=== PATIENT | female | born 1945 | race Caucasian/White ===

== ENCOUNTER 2019-08-28 11:39 | Outpatient (CLI) | payer MEDICARE, OTHER, SELFPAY ==
--- NOTE | 2019-08-28 11:59 | XR_ITS ---
WS: [id number] XR knee RT 1-2V 51601 REASON FOR EXAM: OSTEOARTHRITIS FINDINGS: There is spurring off the lateral condyle of the femur and the medial tibial plateau. The meniscal spaces are normal. The patella tibial space is normal. The patella femoral articulations were normal. The remaining knee was normal. XR/XR knee RT 1-2V 17619 IMPRESSION: Mild osteoarthritic changes of the knee.
--- NOTE | 2019-08-28 11:59 | XR_ITS ---
WS: [id number] XR knee LT 1-2V 61820 REASON FOR EXAM: OSTEOARTHRITIS FINDINGS: The meniscal spaces are normal. The patella tibial space is normal. Patellofemoral articulations normal. No destructive changes or fractures. XR/XR knee LT 1-2V 25313 IMPRESSION: Negative left knee.
== END 2019-08-28 11:40 | disposition home or self-care (01) ==
LOC: RAD 11:48
PROVIDERS: Family Provider Family Medicine; PCP Family Medicine; Visit Provider Family Medicine
DX: M17.0 Bilateral primary osteoarthritis of knee (principal)
CPT/HCPCS: 73560

== ENCOUNTER 2019-11-14 10:10 | Outpatient (CLI) | payer MEDICARE, OTHER, SELFPAY ==
--- NOTE | 2019-11-14 10:17 | XR_ITS ---
WS: [id number] XR wrist LT min 3V* [id number] REASON FOR EXAM: LEFT WRIST PAIN FINDINGS: Degenerated changes are seen across the greater lesser multangular. There is no fractures seen in the carpal bones ulna radius are metacarpals. XR/XR wrist LT min 3V* [id number] IMPRESSION: Advanced osteoarthritic changes of the greater lesser multangular.
--- NOTE | 2019-11-14 10:17 | XR_ITS ---
WS: [id number] XR hand LT min 3V* [id number] REASON FOR EXAM: LEFT HAND PAIN FINDINGS: Degenerate changes a greater lesser multangular. There is mild degenerate changes of the distal interphalangeal joints. XR/XR hand LT min 3V* [id number] IMPRESSION: Osteoarthritic changes of the carpal bones as well as the middle interphalangea l joints.
== END 2019-11-14 10:11 | disposition home or self-care (01) ==
LOC: RAD 10:15
PROVIDERS: PCP Family Medicine; Visit Provider Orthopaedic Surgery
DX: M19.042 Primary osteoarthritis, left hand (principal)
CPT/HCPCS: 73110; 73130

== ENCOUNTER 2020-01-08 13:41 | Outpatient (CLI) | payer MEDICARE, OTHER, SELFPAY ==
[2020-01-08 14:46] LABS: Basophils # 0.1 10^3/uL (0.0-0.1); Basophils % 1.3 %; Eosinophils # 0.2 10^3/uL (0.0-0.8); Eosinophils % 4.3 %; Hematocrit 40.6 % (37.0-47.0); Hemoglobin 13.1 g/dL (11.5-15.3); Lymphocytes # 1.4 10^3/uL (0.8-4.8); Lymphocytes % 30.5 %; Mean Corpuscular HGB Conc 32.3 g/dL (30.0-36.0); Mean Corpuscular Volume 96.2 fL (81-99); Mean Platelet Volume 9.9 fL (7.4-10.4); Monocytes # 0.4 10^3/uL (0.2-0.9); Monocytes % 8.2 %; Neutrophils # 2.6 10^3/uL (1.8-7.7); Neutrophils % 55.5 %; Nucleated Red Blood Cells % 0 %; Platelet Count 241 10^3/cmm (130-400); Red Blood Count 4.22 10^6/uL (4.1-5.3); Red Cell Distribution Width 13.2 % (12.1-15.1); White Blood Count 4.7 10^3/uL (4.0-10.0)
[2020-01-08 15:30] LABS: Blood Urea Nitrogen 10 mg/dL (8-23); Calcium 9.9 mg/dL (8.5-10.5); Carbon Dioxide 30 mmol/L (22-29); Chloride 100 mmol/L (98-107); Glucose 92 mg/dL (65-115); Osmolality Calculated 288 mOsm/kg (285-295); Sodium 141 mmol/L (136-145)
== END 2020-01-08 13:42 | disposition home or self-care (01) ==
LOC: LAB 13:52
PROVIDERS: PCP Family Medicine; Visit Provider Orthopaedic Surgery
DX: Z01.812 Encounter for preprocedural laboratory examination (principal); S83.241A Other tear of medial meniscus, current injury, right knee, initial encounter; X58.XXXA Exposure to other specified factors, initial encounter
CPT/HCPCS: 36415; 80048; 85025

== ENCOUNTER 2020-09-09 07:34 | Inpatient (IN) | payer MEDICARE, OTHER, SELFPAY ==
[2020-09-09] VITALS (21 sets, daily range): BP systolic 90–132; BP diastolic 55–90; PULSE 100–125; RESP 16–25; TEMP 36.5–37.4; O2SAT 92–96; BMI 26.2
--- NOTE | 2020-09-09 07:48 | ECG_ITS ---
[facility] Test Date: 2020-09-09 Pat Name: Wendy Toth Department: Room: Gender: Female Printing Pressman: : 1945 Requested By: Yao Cloud Order Number: [id number] Neha MD: Abilio Torres M.D. Measurements Intervals [place] Rate: 111 P: RI: QRS: 13 QRSD: 105 T: 9 QT: 328 QTc: 446 Interpretive Statements ATRIAL FIBRILLATION WITH RAPID VENTRICULAR RESPONSE ABNORMAL RHYTHM ECG Compared to ECG 10/13/2018 10:56:59 Sinus bradycardia no longer present Electronically Signed On 09-09-2020 20:53:11 BROWNFIELD REDEVELOPMENT SPECIALIST by Abilio Torres M.D. [email or web address] hospitalVhayu [email or web address]/store/Ov/[id number]
--- NOTE | 2020-09-09 07:48 | XR_ITS ---
WS: [id number] PORTABLE CHEST HISTORY: a fib rvr COMPARISON: 10/13/2018 Stable appearance of the mild interstitial thickening in the RIGHT lower lobe. Benign granuloma in th e central RIGHT lung. No pleural effusion or pneumothorax. Cardiac size: Normal. Mediastinum/Aorta: Mild atherosclerosis aorta. No osseous abnormality seen. XR/XR chest 1V portable [id number] IMPRESSION: Mild chronic appearing interstitial lung disease. Very similar to the prior shruti dy from 10/13/2018. No pneumonia.
--- NOTE | 2020-09-09 07:50 | W.ED.CHESTPA ---
HPI - Chest Pain General: Chief Complaint: Chest Pain Stated Complaint: chest pain Time Seen by Provider: 09/09/20 07:39 History of Present Illness: HPI narrative: pt is a 75 year old female with PMH MVP comes to ED complaining of rapid heart rate since 10PM last night. She did not sleep at all. Denies cp, dyspnea. Denies previous cardiac history, cva, [place], or any other medical problems. Says only medical problem is pyloric stenosis they dialate yearly and she is not currently having any problems with. Timing of current episode: constant Prior episodes: No Onset: during rest Severity: moderate Relieving factors: nothing Exacerbating factors: nothing Associated symptoms: Reports no associated symptoms and vomiting (last night); Deny abdominal pain, dyspnea, nausea or palpitations Treatment prior to arrival: none Review of Systems General: Reports: 10 or more systems reviewed and unremarkable except in HPI and below Const: Denies: fatigue Eyes: Denies: change in vision, blurry vision or eye redness ENMT: Denies: throat pain, swelling of lips/tongue, ear or mastoid pain or nasal congestion Card: Denies: chest pain, palpitations, irregular heart rhythm, edema, dyspnea on exertion or orthopnea Resp: Denies: dyspnea, productive cough or non-productive cough GI: Reports: vomiting (last night); Denies: abdominal pain or nausea : Denies: flank pain, difficulty voiding, urinary frequency or urinary urgency Musc: Denies: neck pain, back pain, extremity pain, joint pain, joint redness, limited range of motion or muscle weakness Skin/Breast: Denies: rash, pruritus, erythema, skin pain or skin tenderness Neuro: Denies: headache(s), numbness in extremities, weakness in extremities, sensory changes, difficulty walking, dizziness, confusion or Slurred speech present Psych: Denies: anxiety or depression Endo: Denies: polyuria All/Imm: Denies: urticaria, throat swelling or tongue swelling PFSH ED PFSH: Medical History (Updated 09/09/20 @ 11:25 by Yao Cloud MD) Essential hypertension Hyperlipidemia Mitral regurgitation MVP (mitral valve prolapse) Pulmonary HTN Family History Father Cancer PROSTATE Mother Cancer CHF (congestive heart failure) Social History Smoking and tobacco status: never smoked Household members: spouse Marital status: Physical Exam Const: COMMON NORMALS: no acute distress, average body habitus, patient oriented x3, no limitations, healthy appearing, alert and well nourished GENERAL APPEARANCE: cooperative, comfortable, well kempt and well developed ORIENTATION/CONSCIOUSNESS: Yes awake, Yes oriented to person, Yes oriented to place and Yes oriented to time HENMT: COMMON NORMALS: normocephalic, external ears normal and Normal external nose present HEAD & SCALP: normal to inspection and normocephalic NOSE: Normal external nose present EXTERNAL EAR: Yes external ears normal MOUTH: Normal oral and palatal mucosa present THROAT: posterior oropharynx normal Eye: COMMON NORMALS: Equal, round and reactive pupils present and EOMs intact bilaterally GENERAL EYE: appearance normal, both eyes and all related structures PUPIL: Yes Equal, round and reactive pupils present Neck/C-Spine: COMMON NORMALS: full ROM, no lymphadenopathy, no meningeal signs and no JVD GENERAL: Yes normal visual inspection Lymph: LYMPHATIC: no lymphadenopathy noted Chest: COMMONS NORMALS: normal inspection of the chest and normal palpation of entire chest wall Resp: COMMON NORMALS: normal respiratory effort, No retractions, No use of accessory muscles, clear to auscultation bilaterally and percussion normal EFFORT & INSPECTION: Yes able to speak in complete sentences AUSCULTATION: clear to auscultation bilaterally PERCUSSION: percussion normal Cardio: COMMON NORMALS: no JVD, S1 normal heart sound present, S2 normal heart sound present and Peripheral pulses 2+ throughout RATE: tachycardic RHYTHM: abnormal rhythm irregularly irregular HEART SOUNDS: S1 normal heart sound present and S2 normal heart sound present PERIPHERAL PULSES: Peripheral pulses 2+ throughout OTHER: a fib rvr rate 115-125 GI: COMMON NORMALS: Normal to inspection, nondistended, normoactive bowel sounds present, Soft to palpation, non-tender and no masses INSPECTION: Yes normal to inspection PALPATION: Yes Soft to palpation : COMMON NORMALS: Yes no CVA tenderness BLADDER/KIDNEY EXAM: Yes no CVA tenderness Back/Pelvis: COMMON NORMALS: no CVA tenderness, thoracic and lumbar spine normal to inspection, no thoracic nor lumbar tenderness and thoraco-lumbar ROM normal Extremity: COMMON NORMALS: normal to inspection, full ROM, capillary refill normal, no joint enlargement and no pedal edema GENERAL: Yes normal exam except as noted Neuro: COMMON NORMALS: patient oriented x3, CN's II-XII intact bilaterally, moves all extremities, no focal motor deficits, no sensory deficits noted and gait normal SENSORIUM/ORIENTATION: Yes alert, Yes oriented to person, Yes oriented to place and Yes oriented to time MENINGEAL SIGNS: Yes no meningeal signs Psych: COMMON NORMALS: mental status grossly normal, Normal thought process present, cooperative, normal affect and speech normal APPEARANCE: Yes well kempt ATTITUDE: Yes calm SPEECH: Yes normal speech THOUGHT PROCESS: Normal thought process present Skin: COMMON NORMALS: no rashes or lesions noted GENERAL SKIN EXAM: no rashes or lesions noted Course Vital Signs: Vital signs: Vital Signs Temperature 97.7 F 09/09/20 07:36 Pulse Rate 113 H 09/09/20 11:39 Respiratory Rate 19 H 09/09/20 09:27 Blood Pressure 121/81 09/09/20 11:39 Pulse Oximetry 94 09/09/20 11:39 MDM - Chest Pain MDM Narrative: Medical decision making narrative: PT arrives with new onset a. fib RVR with rate 120-130s and symptomatic of tachycardia. Given cardizem bolus, then drip. Some rate improvement to 100s. Discussed with Dr. Carr who accepts to CSU. DIscussed blood thinners with her and risks of bleeding in head, GI, benefits of preventing clots and CVA and alternatives of nothing. She understands and is A+Ox4 with present and wishes to take the lovenox. Lab Data: Labs: Lab Results 09/09/20 09/09/20 09/09/20 Range/Units 08:16 08:16 08:16 WBC 6.1 (4.0-10.0) 10^3/ uL RBC 3.86 L (4.1-5.3) 10^6/u L Hgb 12.1 (11.5-15.3) g/dL Hct 37.0 (37.0-47.0) % MCV 95.9 (81-99) fL MCH 31.3 (28.0-34.0) pg MCHC 32.7 (30.0-36.0) g/dL RDW 13.5 (12.1-15.1) % Plt Count 196 (130-400) 10^3/c mm MPV 10.0 (7.4-10.4) fL Neut % (Auto) 73.5 % Lymph % (Auto) 12.8 % Lake % (Auto) 11.9 % Eos % (Auto) 1.1 % Baso % (Auto) 0.5 % Neut # (Auto) 4.49 (1.8-7.7) 10^3/u L Lymph # (Auto) 0.8 (0.8-4.8) 10^3/u L Lake # (Auto) 0.7 (0.2-0.9) 10^3/u L Eos # (Auto) 0.1 (0.0-0.8) 10^3/u L Baso # (Auto) 0.0 (0.0-0.1) 10^3/u L Nucleated RBC % (a uto) 0 % Nucleated RBCs # 0.0 /100WBC D-Dimer 0.45 (0-0.59) ug/mIFE U Sodium 139 (136-145) mmol/L Potassium 3.9 (3.5-5.1) mmol/L Chloride 103 (98-107) mmol/L Carbon Dioxide 27 (22-29) mmol/L Anion Gap 12.9 (5-19) BUN 12 (8-23) mg/dL Creatinine 0.5 (0.5-0.9) mg/dL GFR Calculation Not Reportable Glucose 124 H (65-115) mg/dL Calculated Osmolal ity 289 (285-295) mOsm/k g Calcium 9.4 (8.5-10.5) mg/dL Total Bilirubin 0.9 (0.15-1.2) mg/dL AST 35 H (0-32) U/L ALT 22 (0-33) U/L Alkaline Phosphata se 67 (35-105) IU/L Troponin T Baselin e (0-10) ng/L Troponin T 120 [place] (0-10) ng/L Delta Troponin T (0-10) ABS# NT-Pro-B Natriuret Pep 5116 H (0-450) pg/mL Total Protein 6.4 L (6.6-8.7) g/dL Albumin 4.2 (3.5-5.2) g/dL Globulin 2.2 (1.3-4.6) g/dL Urine Color (Yellow) Urine Appearance (CLEAR) Urine pH (5-7) Ur Specific Gravit y (1.005-1.030) Urine Protein (Negative) Urine Glucose (UA) (Normal) Urine Ketones (Negative) Urine Blood (Negative) Urine Nitrate (Negative) Urine Bilirubin (Negative) Urine Urobilinogen (Negative) mg/dL Ur Leukocyte Bailey ase (Negative) 09/09/20 09/09/20 09/09/20 Range/Units 08:16 09:25 10:30 WBC (4.0-10.0) 10^3/ uL RBC (4.1-5.3) 10^6/u L Hgb (11.5-15.3) g/dL Hct (37.0-47.0) % MCV (81-99) fL MCH (28.0-34.0) pg MCHC (30.0-36.0) g/dL RDW (12.1-15.1) % Plt Count (130-400) 10^3/c mm MPV (7.4-10.4) fL Neut % (Auto) % Lymph % (Auto) % Lake % (Auto) % Eos % (Auto) % Baso % (Auto) % Neut # (Auto) (1.8-7.7) 10^3/u L Lymph # (Auto) (0.8-4.8) 10^3/u L Lake # (Auto) (0.2-0.9) 10^3/u L Eos # (Auto) (0.0-0.8) 10^3/u L Baso # (Auto) (0.0-0.1) 10^3/u L Nucleated RBC % (a uto) % Nucleated RBCs # /100WBC D-Dimer (0-0.59) ug/mIFE U Sodium (136-145) mmol/L Potassium (3.5-5.1) mmol/L Chloride (98-107) mmol/L Carbon Dioxide (22-29) mmol/L Anion Gap (5-19) BUN (8-23) mg/dL Creatinine (0.5-0.9) mg/dL GFR Calculation Glucose (65-115) mg/dL Calculated Osmolal ity (285-295) mOsm/k g Calcium (8.5-10.5) mg/dL Total Bilirubin (0.15-1.2) mg/dL AST (0-32) U/L ALT (0-33) U/L Alkaline Phosphata se (35-105) IU/L Troponin T Baselin e 21 H (0-10) ng/L Troponin T 120 [place] 18.91 H (0-10) ng/L Delta Troponin T -2.09 L (0-10) ABS# NT-Pro-B Natriuret Pep (0-450) pg/mL Total Protein (6.6-8.7) g/dL Albumin (3.5-5.2) g/dL Globulin (1.3-4.6) g/dL Urine Color Straw (Yellow) Urine Appearance Clear (CLEAR) Urine pH 5 (5-7) Ur Specific Gravit y 1.005 (1.005-1.030) Urine Protein Neg (Negative) Urine Glucose (UA) Norm (Normal) Urine Ketones Negative (Negative) Urine Blood Neg (Negative) Urine Nitrate Negative (Negative) Urine Bilirubin Neg (Negative) Urine Urobilinogen Norm (Negative) mg/dL Ur Leukocyte Bailey ase Negative (Negative) Discharge Plan Discharge Patient Disposition: Admitted As Inpatient Clinical Impression: Atrial fibrillation with rapid ventricular response Condition: Stable Coding Level of Care Code ED Aerospace Stress Engineer for Karog Fwd Exam Comprehensive
[2020-09-09 08:35] LABS: Basophils % 0.5 %; Eosinophils # 0.1 10^3/uL (0.0-0.8); Eosinophils % 1.1 %; Hemoglobin 12.1 g/dL (11.5-15.3); Lymphocytes # 0.8 10^3/uL (0.8-4.8); Lymphocytes % 12.8 %; Mean Corpuscular HGB Conc 32.7 g/dL (30.0-36.0); Mean Corpuscular Hemoglobin 31.3 pg (28.0-34.0); Mean Corpuscular Volume 95.9 fL (81-99); Monocytes # 0.7 10^3/uL (0.2-0.9); Monocytes % 11.9 %; Neutrophils # 4.49 10^3/uL (1.8-7.7); Neutrophils % 73.5 %; Nucleated Red Blood Cells % 0 %; Platelet Count 196 10^3/cmm (130-400); Red Blood Count 3.86 10^6/uL (4.1-5.3); Red Cell Distribution Width 13.5 % (12.1-15.1); White Blood Count 6.1 10^3/uL (4.0-10.0)
[2020-09-09 08:48] LABS: Troponin(5th) Baseline 21 ng/L (0-10)
[2020-09-09 08:49] LABS: D Dimer 0.45 ug/mIFEU (0-0.59)
[2020-09-09 08:57] LABS: Alanine Aminotransferase 22 U/L (0-33); Albumin Level 4.2 g/dL (3.5-5.2); Alkaline Phosphatase 67 IU/L (35-105); Anion Gap 12.9 (5-19); Aspartate Amino Transferase 35 U/L (0-32); Blood Urea Nitrogen 12 mg/dL (8-23); Calcium 9.4 mg/dL (8.5-10.5); Carbon Dioxide 27 mmol/L (22-29); Chloride 103 mmol/L (98-107); Creatinine Clr Calc Pharmacy 59.7172; Globulin 2.2 g/dL (1.3-4.6); Glucose 124 mg/dL (65-115); NT Pro B Type Natriuretic Pept 5116 pg/mL (0-450); Osmolality Calculated 289 mOsm/kg (285-295); Potassium 3.9 mmol/L (3.5-5.1); Sodium 139 mmol/L (136-145); Total Bilirubin 0.9 mg/dL (0.15-1.2); Total Protein 6.4 g/dL (6.6-8.7)
--- NOTE | 2020-09-09 09:28 | PC.NURSE ---
patient up to restroom with assist
[2020-09-09 09:36] LABS: Add Urine Microscopic? NO
[2020-09-09 09:47] LABS: Bilirubin Urine Neg (Negative); Blood Urine Neg (Negative); Glucose Urine UA Norm (Normal); Ketones Urine Negative (Negative); Leukocyte Esterase Urine Negative (Negative); Nitrate Urine Negative (Negative); Protein Urine Neg (Negative); Specific Gravity, Urine 1.005 (1.005-1.030); Urine Appearance Clear (CLEAR); Urine Color Straw (Yellow); Urobilinogen Urine Norm (Negative); pH Urine 5 (5-7)
--- NOTE | 2020-09-09 09:48 | ECG_ITS ---
[facility] Test Date: 2020-09-09 Pat Name: Wendy Toth Department: Room: Gender: Female News Anchor: : 1945 Requested By: Yao Cloud Order Number: [id number] Neha MD: Abilio Torres M.D. Measurements Intervals [place] Rate: 91 P: [place]: QRS: 5 QRSD: 108 T: 9 QT: 356 QTc: 439 Interpretive Statements ATRIAL FIBRILLATION ABNORMAL RHYTHM ECG Compared to ECG 09/09/2020 07:44:02 No significant changes Electronically Signed On 09-09-2020 21:00:06 FOIL CUTTER by Abilio Torres M.D. [email or web address] Gapgrant [email or web address] Concepts/store/[id number]
[2020-09-09 10:58] LABS: Troponin 5 2HR 18.91 ng/L (0-10)
[2020-09-09 11:00] LABS: Troponin 5 2HR Delta -2.09 ABS# (0-10)
[2020-09-09] MEDS: enoxaparin 80 mg/0.8 mL Syringe 70 MG SUBCUT ×2 (11:56→22:03)
[2020-09-09 12:09] LABS: Magnesium 1.9 mg/dL (1.7-2.3); Thyroid Stimulating Hormone 0.04 uIU/mL (0.27-4.20)
--- NOTE | 2020-09-09 13:17 | P.HP_ITS ---
Providers/Chief Complaint Admitting Physician: Eron Carr MD Primary Care Provider: Javy Fields MD Chief Complaint: chest pain History of Present Illness Wendy Toth is a 75 year old female who presents with history of palpitations for the last 2 days. She reports no chest discomfort or significant shortness of breath. More apparent when she lays on her side. The feeling of palpitations has been constant. Nothing seems to improve it . She denies any history of Covid, exposure to anybody with Covid. She denies any recent other illnesses. She denies a prior history of atrial fibrillation. Review of Systems General: Reports: 10 or more systems reviewed and unremarkable except in HPI and below Const: Denies: fever(s) or chills Eyes: Denies: change in vision ENMT: Denies: throat pain Card: Reports: palpitations; Denies: chest pain Resp: Denies: dyspnea GI: Denies: abdominal pain : Denies: flank pain Musc: Denies: neck pain Skin/Breast: Denies: rash Neuro: Denies: headache(s) Psych: Denies: anxiety Endo: Denies: polyuria Edi/Lymph: Denies: easy bruising All/Imm: Denies: urticaria Medications/Allergies Home Medications Medication Instructions Recorded Confirmed Last Taken Type atenolol 100 mg tablet 50 mg PO DAILY@18 tab 01/01/20 09/09/20 09/08/20 History cetirizine 10 mg tablet 10 mg PO DAILY@08 01/01/20 09/09/20 Unknown History lansoprazole 15 mg capsule,delayed 15 mg PO DAILY@18 01/01/20 09/09/20 09/08/20 History release red yeast rice 600 mg tablet See Rx Instructions .ROUTE .COMPLEX 01/01/20 09/09/20 Unknown History acetaminophen [Tylenol Extra 1,000 mg PO BEDTIME 09/09/20 09/09/20 Unknown History Strength] multivitamin 1 tab PO DAILY@08 09/09/20 09/09/20 Unknown History Allergies Allergy/AdvReac Type Severity Reaction Status Date / Time amoxicillin Allergy Unknown Unknown Verified 09/09/20 07:42 azithromycin [From Zithromax] Allergy Unknown Unknown Verified 09/09/20 07:42 erythromycin base Allergy Unknown Unknown Verified 09/09/20 07:42 Penicillins Allergy Unknown Unknown Verified 09/09/20 07:42 PFSH Acute PFSH: Medical History (Updated 09/09/20 @ 13:20 by Eron Carr MD) Essential hypertension GERD (gastroesophageal reflux disease) Hiatal hernia Hyperlipidemia Mitral regurgitation MVP (mitral valve prolapse) Pulmonary HTN Surgical History (Updated 09/09/20 @ 13:20 by Eron Carr MD) Esophageal dilatation History of D&C S/P cataract extraction S/P hernia repair Family History Father Cancer PROSTATE Mother Cancer CHF (congestive heart failure) Social History (Updated 09/09/20 @ 13:20 by Eron Carr MD) Smoking and tobacco status: never smoked Alcohol intake: never Household members: spouse Marital status: Vitals/I&O/Wt Last Vital Signs Temp 97.7 F 09/09/20 07:36 Pulse 100 09/09/20 12:12 Resp 20 H 09/09/20 12:12 BP 129/87 09/09/20 12:12 Pulse Ox 96 09/09/20 12:12 09/08/20 09/09/20 09/09/20 22:59 06:59 14:59 Intake Total 7.417 / 7.417 Balance 7.417 / 7.417 Weight last 48 hrs Weight 72.575 kg Physical Exam Narrative: EXAM NARRATIVE: General exam is a white female, conversant in no apparent distress with a heart rate of approximately 115 HEENT: Pupils equally round. Oropharynx clear. Neck is supple no lymphadenopathy or thyromegaly Cardiovascular irregular, irregular with accelerated rate. No murmur. Lungs clear without wheezing or crackles Abdomen is soft with positive bowel sounds. No obvious organomegaly was deferred Extremities no cyanosis clubbing or edema, cap refill brisk. Skin no obvious rash Neuro no obvious focal deficits. Data : 09/09/20 08:16 09/09/20 08:16 Other data: Echocardiogram April 2019 demonstrated severe pulmonary hypertension with pulmonary artery pressure of 74 and moderate to severe mitral regurgitation. Holter monitor December 2019 demonstrated no evidence of arrhythmia EKG today demonstrates atrial fibrillation with rapid ventricular rate, nonspecific ST-T wave changes, normal axis LFTs normal with exception of AST slightly elevated at 35 Troponin baseline 21 with repeat of 18.9 BNP elevated at 50 116 TSH that I ordered is low at 0.04 Urinalysis negative Magnesium normal at 1.9 A&P Assessment and plan (1) Atrial fibrillation with rapid ventricular response: Placed on Cardizem drip in the emergency department Plan is to continue Cardizem drip Patient is not sure if she took her atenolol last night. Initiate metoprolol 50 mg twice daily Taper off Cardizem as tolerated Full dose anticoagulation with Lovenox TSH checked and abnormal. Check free T4 and free T3 Troponin elevation is noted but consistent with atrial fibrillation with rapid ventricular rate. No evidence of myocardial infarction Status: Acute (2) Mitral regurgitation: Check echocardiogram. Is been 2 years since her last echocardiogram. Status: Acute (3) Pulmonary HTN: Noted on previous echocardiogram. Repeat Status: Acute (4) Essential hypertension: Currently on a Cardizem drip Metoprolol will be initiated Status: Acute (5) MVP (mitral valve prolapse): Status: Acute (6) Hyperlipidemia: Status: Acute Additional A&P Information History of GERD. Start Protonix. Full code Lovenox will suffice for DVT prophylaxis Attestations Medical Necessity Statement*: Will need greater than 2 midnight stay for treatment and evaluation of atrial fibrillation with rapid ventricular rate Time Spent in Patient Care: Greater than 35 minutes Coding Level of Care Code Acute High School Mathematics Teacher for Chg Fwd Diagnoses Atrial fibrillation with rapid ventricular response I48.91 Mitral regurgitation I34.0 Pulmonary HTN I27.20 Essential hypertension I10 MVP (mitral valve prolapse) I34.1 Hyperlipidemia E78.5
--- NOTE | 2020-09-09 13:30 | USCV_ITS ---
Wendy Toth Age: 75 Gender: F : 1945 Exam Date: 09/09/2020 16:11 Ordering Phys: Eron Carr MD Technologist: Bettina Venegas [place] [facility] [place]: AFIB BP: 109 / 70 HR: 97 Rhythm: Atrial fibrillation Technical Quality: Adequate MEASUREMENTS (Male / Female) Normal Values 2D ECHO LV Diastolic Diameter PLAX 4.5 cm 4.2 - 5.9 / 3.9 - 5.3 cm LV Systolic Diameter PLAX 3.1 cm LV Chamber Size 2.9 cm IVS Diastolic Thickness 1.2 cm 0.6 - 1.0 / 0.6 - 0.9 cm IVS Systolic Thickness 2.0 cm LVPW Diastolic Thickness 1.4 cm 0.6 - 1.0 / 0.6 - 0.9 cm LVPW Systolic Thickness 1.7 cm RV Chamber Size 3.3 cm LVOT Diameter 2.0 cm LV Ejection Fraction 2D Teich 59.0 % LV Ejection Fraction MOD 2C 65.8 % LV Ejection Fraction 2C AL 69.4 % LA Diameter 4.0 cm LA Width 3.5 cm LA Height 5.9 cm RA Width 3.4 cm RA Height 5.2 cm Aorta at Sinotubular Diameter 3.5 cm M-MODE LV Diastolic Diameter MM 5.2 cm 4.2 - 5.9 / 3.9 - 5.3 cm LV Systolic Diameter MM 3.8 cm LV Ejection Fraction MM Teich 53.4 % IVS Diastolic Thickness MM 1.3 cm 0.6 - 1.0 / 0.6 - 0.9 cm IVS Systolic Thickness MM 1.4 cm LVPW Diastolic Thickness MM 1.3 cm 0.6 - 1.0 / 0.6 - 0.9 cm LVPW Systolic Thickness MM 1.8 cm Aortic Annulus Diameter 3.2 cm LA Ao Ratio MM 1.2 MV E Point Septal Separation 0.4 cm DOPPLER AV Peak Velocity 163.0 cm/s LVOT Peak Velocity 92.0 cm/s AV Area Cont Eq vti 1.8 cm squared AV Area Cont Eq pk 1.9 cm squared MV Area PHT 4.1 cm squared MV E' Velocity 73.0 cm/s Mitral E to MV E' Ratio 9.8 Mitral E to LV E' Lateral Ratio 12.0 Mitral E to LV E' Septal Ratio 8.3 TR Peak Velocity 265.8 cm/s TR Peak Gradient 28.3 mmHg TR Mean Velocity 200.1 cm/s TR Mean Gradient 17.8 mmHg TR Velocity Time Integral 67.4 cm TV Peak E Velocity 61.0 cm/s Right Atrial Pressure 3.0 mmHg Pulmonary Artery Systolic Pressu 31.3 mmHg PV Peak Velocity 60.0 cm/s RV Acceleration Time 0.1 s RV Ejection Time 0.3 s RV AcT/ET 0.4 FINDINGS Left Ventricle Normal left ventricular size, systolic function and wall thickness, with no regional wall motion abnormalities. Left ventricular ejection fraction is estimated at 65 %. Rhythm precludes evaluation of diastolic function. Right Ventricle Normal right ventricular size and systolic function, RVSP 30 mmHg. Right Atrium Normal right atrial size. Right atrial pressure estimated at 3 mmHg. Left Atrium Moderately increased left atrial size. Mitral Valve Moderate mitral annular calcification. Markedly thickened myxomatous appearing mitral valve with moderate bileaflet prolapse. Mild to moderate mitral valve regurgitation. Aortic Valve Mildly thickened trileaflet aortic valve. No aortic valve stenosis. No significant aortic valve regurgitation. Tricuspid Valve Structurally normal tricuspid valve. Kbdl-li-igmtzpnr tricuspid valve regurgitation. Pulmonic Valve Pulmonic valve not well visualized. No significant pulmonary valve regurgitation. Pericardium No pericardial effusion. Aorta Normal-sized aortic root. Normal-sized inferior vena cava with normal respiratory variation. CONCLUSIONS 1. Normal left ventricular size, systolic function and wall thickness, with no regional wall motion abnormalities. Left ventricular ejection fraction is estimated at 65 %. 2. Normal right ventricular size and systolic function, RVSP 30 mmHg. 3. Markedly thickened myxomatous appearing mitral valve leaflets with moderate bileaflet prolapse. Mild to moderate mitral valve regurgitation. 4. Diah-yu-eoewrhoc tricuspid valve regurgitation. 5. When compared to previous study dated 04/15/2019, severity of mitral valve regurgitation may have improved. Yasmin Ny MD (Electronically Signed) Final Date: 10 September 2020 09:15 S
--- NOTE | 2020-09-09 13:48 | ECG_ITS ---
[facility] Test Date: 2020-09-09 Pat Name: Wendy Toth Department: Room: 112 Gender: Female Transformer Molder: : 1945 Requested By: Yao Cloud Order Number: [id number] Neha MD: Abilio Torres M.D. Measurements Intervals [place] Rate: 104 P: NV: QRS: 19 QRSD: 97 T: 30 QT: 319 QTc: 421 Interpretive Statements ATRIAL FIBRILLATION WITH RAPID VENTRICULAR RESPONSE ABNORMAL RHYTHM ECG Compared to ECG 09/09/2020 10:12:51 No significant changes Electronically Signed On 09-09-2020 21:02:41 PHLEBOTOMY SUPERVISOR by Abilio Torres M.D. [email or web address] medical [id number]
[2020-09-09 15:03] LABS: Estmated Average Glucose 88; Hemoglobin A1C 4.7 % (4.0-6.0)
[2020-09-09 15:21] LABS: Troponin 5 6HR 17.06 ng/L (0-10)
[2020-09-09 15:24] LABS: Troponin 5 6HR Delta -3.94 ng/L (0-12)
[2020-09-09 15:56] LABS: Free T4 Free Thyroxine 2.05 ng/dL (0.82-1.77); T3 Free 12.4 PG/ML (2.0-4.4)
--- NOTE | 2020-09-09 18:37 | PC.NURSE ---
Pt lying in bed resting with eyes open. Resp even and non-labored no distress noted. Pt had no c/o pain or discomfort at the present time. No needs voiced. Call light in reach. Will continue to monitor.
[2020-09-09] MEDS: metoprolol tartrate 50 mg Tablet PO (20:21)
[2020-09-09] MEDS: acetaminophen 325 mg Tablet 650 MG PO (20:25)
[2020-09-10] VITALS (30 sets, daily range): BP systolic 81–123; BP diastolic 53–89; PULSE 67–120; RESP 14–38; TEMP 36.1–36.8; O2SAT 94–96
[2020-09-10 05:13] LABS: Basophils % 0.8 %; Eosinophils # 0.2 10^3/uL (0.0-0.8); Eosinophils % 3.4 %; Hematocrit 36.1 % (37.0-47.0); Hemoglobin 11.7 g/dL (11.5-15.3); Lymphocytes # 1.2 10^3/uL (0.8-4.8); Mean Corpuscular HGB Conc 32.4 g/dL (30.0-36.0); Mean Corpuscular Hemoglobin 31.4 pg (28.0-34.0); Mean Corpuscular Volume 96.8 fL (81-99); Mean Platelet Volume 10.1 fL (7.4-10.4); Monocytes # 0.7 10^3/uL (0.2-0.9); Monocytes % 12.5 %; Neutrophils # 3.22 10^3/uL (1.8-7.7); Neutrophils % 61.1 %; Nucleated Red Blood Cells % 0 %; Platelet Count 180 10^3/cmm (130-400); Red Blood Count 3.73 10^6/uL (4.1-5.3); Red Cell Distribution Width 13.4 % (12.1-15.1); White Blood Count 5.3 10^3/uL (4.0-10.0)
[2020-09-10 05:30] LABS: Anion Gap 11.3 (5-19); Blood Urea Nitrogen 12 mg/dL (8-23); Calcium 8.9 mg/dL (8.5-10.5); Carbon Dioxide 25 mmol/L (22-29); Chloride 105 mmol/L (98-107); Creatinine Clr Calc Pharmacy 59.7172; Glucose 97 mg/dL (65-115); Magnesium 1.8 mg/dL (1.7-2.3); Osmolality Calculated 286 mOsm/kg (285-295); Potassium 3.3 mmol/L (3.5-5.1); Sodium 138 mmol/L (136-145)
--- NOTE | 2020-09-10 07:40 | US_ITS ---
WS: [id number] THYROID ULTRASOUND (TI-RADS CRITERIA) History: Hyperthyroidism.. Technique: Ultrasound examination of the thyroid and adjacent soft tissues is performed. FINDINGS: Right lobe: 4.5 cm x 1.7 cm x 1.8 cm. Volume: 7.3 cm3. Mildly heterogeneous slightly enlarged gland. Ill-defined nodule in the inferior lobe will be describ ed below. Left lobe: 4.1 cm x 1.5 cm x 1.5 cm. Volume: 4.7 cm3. Mildly heterogeneous gland. 5 mm nodule in the inferior pole of the LEFT thyroid. Isthmus: 0.2 cm. NODULE: 1, RIGHT Size: 1.3 x 1.4 x 1.7 cm Location: Inferior RIGHT Composition: Solid/almost completely solid (2) Echogenicity: Hypoechoic (2) Shape: Not taller than wide (0) Margins: Ill-defined (0) Echogenic foci: 0 ACR TI-RADS total points: 4 ACR TI-RADS risk category: TR4 US/US thyroid 59559 Impression: TR4 Recommendation:Ultrasound follow-up recommended in one, 2, 3 and 5 years. If th is nodule increases in size ultrasound biopsy may be necessary.
[2020-09-10] MEDS: potassium chloride ER 20 mEq Tablet 40 MEQ PO (08:34)
[2020-09-10] MEDS: pantoprazole DR 40 mg Tablet PO (08:35)
[2020-09-10] MEDS: metoprolol tartrate 50 mg Tablet PO ×2 (08:36→20:14)
[2020-09-10] MEDS: multivitamin therapeutic Tablet 1 TAB PO (08:36)
[2020-09-10] MEDS: dilTIAZem 30 mg Tablet PO (08:36)
--- NOTE | 2020-09-10 09:02 | PC.CHAP ---
Pastoral Care Encounter/Spiritual Assessment Type of Contact [] Declined supervisor pipe joints visit [] Patient/Family/Request visit [] Outpatient visit [] Follow-up visit [] Physician referral [] Code/Alert [x] Routine visit [] Staff referral [] Actively dying [] Patient sleeping [] Family support [] [] Out of room [] Palliative care [] [] Receiving care in room [] Pre-surgical visit [] Trauma [] Long length of stay [] ICU visit [] Other: Relational/Emotional Strength [] Patient feels connected with others/family/visitors/staff [] Distress [] Loneliness/isolation [] Abandonment Spirituality of Patient [x] Person of Deisi [] Attends Cheondoism of their Deisi [] Believes in Prayer [] Reads Bible or Jain materials [] There are Spiritual issues to be addressed Scale Expert Interventions [x] Prayer [x] Active listening [x] Non-anxious presence [x] Spiritual/emotional support [] Crisis/trauma care [] Spiritual counseling [] Bereavement support [] Provided bereavement packet [] Provided Bible/devotional materials [] Provided toy/stuffed animal, coloring book to patient or family member [] Provided Communion [] Anointing/[place] [] Salvation [x] Completed spiritual assessment [] Other: Impact on Illness or Injury [] Angry [] Fearful [] Anxious [] Often cries [] Exhaustion [] Unable to work [] Unable to attend restoration [] Unable to walk/stand [] Unable to read [] Unable to drive [] Unable to eat/drink [] Unable to sleep [] Unable to be with family [] Patient intubated [] Other: Summary still having pain... patient gives the impression of being fearful... Time spent with patient 10 min
--- NOTE | 2020-09-10 09:23 | P.PN_ITS ---
Documented by User: Le Le, LIBIA STDNT 09/10/20 09:58 Subjective Subjective: Interval history: Wendy reports that she still feels her heart quivering. Thyroid labs show low TSH and high free T3/T4. We ordered thyroid ultrasound, transitioned Cardizem from IV to PO, and consulted Dr. Stone for cardiology. She denies dizziness. Vitals/I&O/Wt Last Vital Signs Temp 97.0 F L 09/10/20 07:46 Pulse 109 H 09/10/20 07:46 Resp 14 09/10/20 07:46 BP 101/65 09/10/20 07:46 Pulse Ox 96 09/10/20 07:46 09/09/20 09/10/20 09/10/20 22:59 06:59 14:59 Intake Total 312.133 / 319.550 16.833 / 336.383 360 / 360 Balance 312.133 / 319.550 16.833 / 336.383 360 / 360 Weight last 48 hrs Weight 72.575 kg Physical Exam Narrative: EXAM NARRATIVE: General exam is a white female, conversant in no apparent distress with a heart rate of approximately 109. HEENT: Pupils equally round. Oropharynx clear. Neck is supple no lymphadenopathy or thyromegaly Cardiovascular irregular, irregular with accelerated rate. No murmur. Lungs clear without wheezing or crackles Abdomen is soft with positive bowel sounds. No obvious organomegaly was deferred Extremities no cyanosis clubbing or edema, cap refill brisk. Skin no obvious rash Neuro no obvious focal deficits. Data : 09/10/20 04:36 09/10/20 04:36 A&P Assessment and plan (1) Atrial fibrillation with rapid ventricular response: Placed on Cardizem drip in the emergency department Discontinued Cardizem drip today, transitioned to Cardizem PO Continue metoprolol 50 mg twice daily Full dose anticoagulation with Lovenox TSH, free T3, free T4 checked and abnormal. Ordered thyroid ultrasound. Troponin elevation is noted but consistent with atrial fibrillation with rapid ventricular rate. No evidence of myocardial infarction Status: Acute (2) Mitral regurgitation: Checked echocardiogram. Has been 2 years since her last echocardiogram. Echocardiogram shows markedly thickened myxomatous appearing mitral valve leaflets with moderate bileaflet prolapse, mild to moderate mitral valve regurgitation, and mild to moderate tricuspid valve regurgitation. Status: Acute (3) Pulmonary HTN: Noted on previous echocardiogram. Repeat Status: Acute (4) Essential hypertension: Discontinued Cardizem drip, transitioned to Cardizem PO Continue metoprolol Status: Acute (5) MVP (mitral valve prolapse): Status: Acute (6) Hyperlipidemia: Status: Acute Additional A&P Information History of GERD. Started Protonix. Full code Lovenox will suffice for DVT prophylaxis Coding Level of Care Code Acute Launch Commander [employer] for Chg Fwd Diagnoses Atrial fibrillation with rapid ventricular response I48.91 Mitral regurgitation I34.0 Pulmonary HTN I27.20 Essential hypertension I10 MVP (mitral valve prolapse) I34.1 Hyperlipidemia E78.5 Documented by User: Eron Carr MD 09/10/20 14:31 Subjective Subjective: Interval history: Agree with above. Patient interviewed as well. Still with some palpitations. Physical Exam Narrative: EXAM NARRATIVE: Exam as above. Cardiovascular irregular, irregular, lungs clear, abdomen soft with positive bowel sounds, extremities no cyanosis clubbing or edema, neck without thyromegaly. General exam no distress Data : 09/10/20 04:36 09/10/20 04:36 A&P Additional A&P Information Above. No overall changes. Thyroid ultrasound shows one nodule over 1 cm. She will need outpatient endocrine follow-up. Secondary to atrial fibrillation with rapid ventricular rate, markedly abnormal thyroid studies have initiated beta-blas for control of atrial fibrillation and will also initiate with the methimazole. Attestations Medical Necessity Statement*: Needs continued hospital stay for adjustment of antiarrhythmics for atrial fibrillation with rapid ventricular rate. Coding Level of Care Code Acute Launch Commander [employer] for g Fwd Diagnoses Atrial fibrillation with rapid ventricular response I48.91 Mitral regurgitation I34.0 Pulmonary HTN I27.20 Essential hypertension I10 MVP (mitral valve prolapse) I34.1 Hyperlipidemia E78.5
--- NOTE | 2020-09-10 09:36 | P.CONIM_ITS ---
Providers/Reason For Consult Consulting Physican/Specialty*: Francesco Stone MD/Cardiology Reason for Consult*: New onset afib with RVR Requesting Physcian: Eron Carr MD Attending Physician: Eron Carr MD Primary Care Provider: Javy Fields MD History of Present Illness History of Present Illness Wendy Toth is a 75 year old female with PMH of mitral regurgitation and mitral valve prolapse presented to hospital with 2 days of palpitations. These symptoms get worse when she lays on side. No chest pain or shortness of breath. She was started on cardizem gtt and PO cardizem was started today. Patient also put on metoprolol 50mg BID. Her heart rate is still intermittently uncontrolled. She has been started on Lovenox. TSH was low and T3 and T 4 were elevated. No prior history of hyperthyroidism but she does have significant family history of thyroid problems. Her NT Pro BNP is elevated ECHO shows normal LV systolic function with mild to moderate mitral regurgitation and enlarged left atrium. Holter monitor done last year did not show atrial fibrillation. Review of Systems General: Reports: 10 or more systems reviewed and unremarkable except in HPI and below Const: Denies: fever(s) or chills Eyes: Denies: change in vision ENMT: Denies: throat pain Card: Reports: palpitations; Denies: chest pain Resp: Denies: dyspnea GI: Denies: abdominal pain : Denies: flank pain Musc: Denies: neck pain Skin/Breast: Denies: rash Neuro: Denies: headache(s) Psych: Denies: anxiety Endo: Denies: polyuria Edi/Lymph: Denies: easy bruising All/Imm: Denies: urticaria Meds/Allergies Home Medications and Allergies Home Medications Medication Instructions Recorded Confirmed Last Taken Type atenolol 100 mg tablet 50 mg PO DAILY@18 tab 01/01/20 09/09/20 09/08/20 History cetirizine 10 mg tablet 10 mg PO DAILY@08 01/01/20 09/09/20 Unknown History lansoprazole 15 mg capsule,delayed 15 mg PO DAILY@18 01/01/20 09/09/20 09/08/20 History release red yeast rice 600 mg tablet See Rx Instructions .ROUTE .COMPLEX 01/01/20 09/09/20 Unknown History acetaminophen [Tylenol Extra 1,000 mg PO BEDTIME 09/09/20 09/09/20 Unknown History Strength] multivitamin 1 tab PO DAILY@08 09/09/20 09/09/20 Unknown History Allergies Allergy/AdvReac Type Severity Reaction Status Date / Time amoxicillin Allergy Unknown Unknown Verified 09/09/20 07:42 azithromycin [From Zithromax] Allergy Unknown Unknown Verified 09/09/20 07:42 erythromycin base Allergy Unknown Unknown Verified 09/09/20 07:42 Penicillins Allergy Unknown Unknown Verified 09/09/20 07:42 Current Medications Current Medications Generic Name Dose Route Start Last Admin Trade Name Freq PRN Reason Stop Dose Admin Acetaminophen 650 mg 09/09/20 14:00 09/09/20 20:25 Acetaminophen 325 Mg Tablet PO 650 mg Q6H PRN Administration Mild/Mod Pain Or Temp >/= 101 Diltiazem HCl 30 mg 09/10/20 08:00 09/10/20 08:36 Diltiazem 30 Mg Tablet PO 30 mg Q6H NAIF Administration Enoxaparin Sodium 70 mg 09/09/20 23:00 09/09/20 22:03 Enoxaparin 80 Mg/0.8 Ml Syringe SUBCUT 70 mg Q12H NAIF Administration Diltiazem HCl 125 mg/ Sodium 125 mls @ 0 mls/hr 09/09/20 10:30 09/10/20 00:21 Chloride IV 5 mg/hr .Q0M NAIF 5 mls/hr Titration Protocol Per Protocol Metoprolol Tartrate 50 mg 09/09/20 21:00 09/10/20 08:36 Metoprolol Tartrate 50 Mg Tablet PO 50 mg BID@0900,2100 NAIF Administration Multivitamins Therapeutic 1 tab 09/10/20 08:00 09/10/20 08:36 Multivitamin Therapeutic Tablet PO 1 tab DAILY@08 NAIF Administration Pantoprazole Sodium 40 mg 09/10/20 09:00 09/10/20 08:[address] 40 Mg Tablet PO 40 mg DAILY NAIF Administration PFSH Acute PFSH: Medical History Essential hypertension GERD (gastroesophageal reflux disease) Hiatal hernia Hyperlipidemia Mitral regurgitation MVP (mitral valve prolapse) Pulmonary HTN Surgical History Esophageal dilatation History of D&C S/P cataract extraction S/P hernia repair Family History Father Cancer PROSTATE Mother Cancer CHF (congestive heart failure) Social History Smoking and tobacco status: never smoked Alcohol intake: never Household members: spouse Marital status: Vitals/I&O/Wt Last Vital Signs Temp 97.0 F L 09/10/20 07:46 Pulse 109 H 09/10/20 07:46 Resp 14 09/10/20 07:46 BP 101/65 09/10/20 07:46 Pulse Ox 96 09/10/20 07:46 09/09/20 09/10/20 09/10/20 22:59 06:59 14:59 Intake Total 312.133 / 319.550 16.833 / 336.383 360 / 360 Balance 312.133 / 319.550 16.833 / 336.383 360 / 360 Weight last 48 hrs Weight 160 lb Physical Exam Narrative: EXAM NARRATIVE: GENERAL: Patient is alert, awake and oriented x3. [] NECK: No jugular vein distension. [] HEENT: No cyanosis. No icterus. No pallor. [] HEART: Irregularly irregular rhythm, Tachycardic, No murmur, rub or gallop. [] LUNGS: Clear to auscultate bilaterally. [] ABDOMEN: Soft, nontender and nondistended. Positive bowel sounds. No guarding, rebound or tenderness. [] CENTRAL NERVOUS SYSTEM: Grossly nonfocal. [] EXTREMITIES: Lower extremities with 1+ edema bilaterally. Pulses palpable in the lower extremities, both dorsalis pedis and posterior tibial. [] A&P Assessment and plan (1) Atrial fibrillation with rapid ventricular response: Status: Acute (2) Essential hypertension: Status: Acute (3) Mitral regurgitation: Status: Acute (4) Hyperlipidemia: Status: Acute (5) Pulmonary HTN: Status: Acute Patient has new onset atrial fibrillation with RVR. Her TSH is low and free T4/T 3 elevated consistent with hyperthyroidism. Her left atrium is enlarged with mild to moderate mitral regurgitation. LV systolic function is normal Given CHADS VASC score of 4, she will need anticoagulation for stroke prevention. Switch Lovenox to Eliquis 5mg BID Heart rate is still uncontrolled. Will recommend continuing Cardizem at low rate and uptitrate PO cardizem as blood pressure tolerates She has some volume overload. Will give IV lasix 20mg today Hyperthyroidism treatment per medicine team. Thank you for involving us with care of this patient. We will continue to follow. Please call with questions. Coding Level of Care Code Acute Sales Representative [employer]isters for Timbo Fwd Diagnoses Atrial fibrillation with rapid ventricular response I48.91 Essential hypertension I10 Mitral regurgitation I34.0 Hyperlipidemia E78.5 Pulmonary HTN I27.20
[2020-09-10] MEDS: FUROsemide 10 mg/mL SDV 2mL 20 MG IVP (09:43)
[2020-09-10] MEDS: enoxaparin 80 mg/0.8 mL Syringe 70 MG SUBCUT (12:09)
[2020-09-10] MEDS: dilTIAZem 60 mg Tablet PO ×2 (13:55→19:23)
[2020-09-10] MEDS: methIMAzole 5 MG Tablet PO ×2 (14:07→20:14)
[2020-09-10] MEDS: acetaminophen 325 mg Tablet 650 MG PO (17:23)
[2020-09-10] MEDS: apixaban 5 mg Tablet PO (20:14)
[2020-09-11] VITALS (7 sets, daily range): BP systolic 96–137; BP diastolic 55–69; PULSE 63–85; RESP 18–25; TEMP 36.3–37.4; O2SAT 92–96
--- NOTE | 2020-09-11 01:31 | PC.NURSE ---
Unable to round on patient due to assisting with patietn in room 103.
[2020-09-11] MEDS: dilTIAZem 60 mg Tablet PO (01:50)
--- NOTE | 2020-09-11 03:49 | PC.NURSE ---
Dr. Carrasco notified of patient asking for Benadryl for itching all over.
[2020-09-11] MEDS: diphenhydrAMINE 25 mg Capsule PO (04:31)
[2020-09-11] MEDS: acetaminophen 325 mg Tablet 650 MG PO (04:32)
[2020-09-11 04:53] LABS: Basophils # 0.1 10^3/uL (0.0-0.1); Basophils % 1.4 %; Eosinophils # 0.3 10^3/uL (0.0-0.8); Hematocrit 35.8 % (37.0-47.0); Hemoglobin 11.7 g/dL (11.5-15.3); Lymphocytes % 25.1 %; Mean Corpuscular HGB Conc 32.7 g/dL (30.0-36.0); Monocytes # 0.6 10^3/uL (0.2-0.9); Monocytes % 14.3 %; Neutrophils # 2.19 10^3/uL (1.8-7.7); Nucleated Red Blood Cells % 0 %; Platelet Count 203 10^3/cmm (130-400); Red Blood Count 3.77 10^6/uL (4.1-5.3); Red Cell Distribution Width 13.2 % (12.1-15.1); White Blood Count 4.1 10^3/uL (4.0-10.0)
[2020-09-11 05:21] LABS: Blood Urea Nitrogen 16 mg/dL (8-23); Carbon Dioxide 24 mmol/L (22-29); Chloride 106 mmol/L (98-107); Creatinine Clr Calc Pharmacy 59.7172; Glucose 102 mg/dL (65-115); Magnesium 1.9 mg/dL (1.7-2.3); Osmolality Calculated 287 mOsm/kg (285-295); Sodium 138 mmol/L (136-145)
[2020-09-11] MEDS: methIMAzole 5 MG Tablet PO (08:41)
[2020-09-11] MEDS: multivitamin therapeutic Tablet 1 TAB PO (08:41)
[2020-09-11] MEDS: dilTIAZem ER (24HR) 120 mg Capsule PO (08:42)
[2020-09-11] MEDS: pantoprazole DR 40 mg Tablet PO (08:42)
[2020-09-11] MEDS: apixaban 5 mg Tablet PO (08:42)
[2020-09-11] MEDS: metoprolol tartrate 50 mg Tablet PO (08:43)
--- NOTE | 2020-09-11 09:51 | PM.DCS ---
Discharge Providers Date of Admission: 09/09/20 11:22 Date of Discharge: September 11, 2020 Attending Provider at Admission: Eron Carr MD Attending Provider at Discharge: Eron Carr MD Primary Care Provider: Javy Fields MD Diagnoses at Discharge Discharge Diagnosis (1) Atrial fibrillation with rapid ventricular response: Status: Acute (2) Essential hypertension: Status: Acute (3) Mitral regurgitation: Status: Acute (4) Hyperlipidemia: Status: Acute (5) Pulmonary HTN: Status: Acute Reason for Visit Reason for Visit: chest pain Hospital Course Hospital Course Wendy is a 75-year-old white female who presented to hospital with atrial fibrillation with rapid ventricular rate. She was placed on a Cardizem drip. Beta-blas was started, and eventually she was converted to oral Cardizem. Echocardiogram was performed which demonstrated preserved ejection fraction, mild to moderate mitral regurgitation, mild to moderate tricuspid regurgitation and right ventricle some systolic pressure of 30. Thyroid status was evaluated and TSH found to be low, with elevated free T4 and free T3. Treatment was already underway with beta-blas. Methimazole was added. She will need follow-up with cardiology, her primary care provider, and endocrinology on follow-up. A thyroid ultrasound was performed, and a thyroid cyst greater than 1 cm was noted. Endocrinology will evaluate this further. By end of patient's hospital stay she had spontaneously converted to sinus rhythm the afternoon/night of 09/10. Physical Exam Narrative: EXAM NARRATIVE: General exam no apparent distress Cardiovascular regular rate and rhythm without murmur Lungs clear Abdomen is soft, positive bowel sounds Extremities no cyanosis clubbing or edema Discharge Data Data Completed and Pending: Completed Studies During Hospitalization Category Date Time Status XR chest 1V dallin ble 78194 Stat Exams 09/09/20 07:48 Completed CV echo complete* [id number] Routine Ultrasound 09/09/20 13:30 Completed US thyroid 03198 Routine Ultrasound 09/10/20 07:40 Completed Labs from last 24 hours 09/11/20 09/11/20 04:29 04:29 WBC 4.1 RBC 3.77 L Hgb 11.7 Hct 35.8 L MCV 95.0 MCH 31.0 MCHC 32.7 RDW 13.2 Plt Count 203 MPV 10.0 Neut % (Auto) 53.0 Lymph % (Auto) 25.1 [place] % (Auto) 14.3 Eos % (Auto) 6.0 Baso % (Auto) 1.4 Neut # (Auto) 2.19 Lymph # (Auto) 1.0 [place] # (Auto) 0.6 Eos # (Auto) 0.3 Baso # (Auto) 0.1 Nucleated RBC % (a uto) 0 Nucleated RBCs # 0.0 Sodium 138 Potassium 4.0 Chloride 106 Carbon Dioxide 24 Anion Gap 12.0 BUN 16 Creatinine 0.5 GFR Calculation Not Reportable Glucose 102 Calculated Osmolal ity 287 Calcium 9.0 Magnesium 1.9 Vitals: Last Vital Signs Temp 99.1 F 09/11/20 07:22 Pulse 71 09/11/20 07:22 Resp 22 H 09/11/20 07:22 BP 124/58 09/11/20 07:22 Pulse Ox 92 09/11/20 07:22 Discharge Plan Discharge Patient Disposition: Home Condition: Stable Prescriptions: New methimazole 5 mg Tablet 5 mg PO TID Qty: 90 RF: 0 Eliquis 5 mg Tablet 5 mg PO BID@0900,2100 Qty: 60 RF: 0 metoprolol tartrate 50 mg Tablet 50 mg PO BID@0900,2100 Qty: 60 RF: 0 diltiazem HCl 120 mg Capsule,Extended Release 24hr 120 mg PO DAILY Qty: 30 RF: 0 Continued cetirizine [Zyrtec] 10 mg tablet 10 mg PO DAILY@08 RF: 0 red yeast rice 600 mg tablet See Rx Instructions .ROUTE .COMPLEX RF: 0 lansoprazole [Prevacid] 15 mg capsule,delayed release(DR/EC) 15 mg PO DAILY@18 RF: 0 multivitamin Tablet 1 tab PO DAILY@08 RF: 0 Tylenol Extra Strength 500 mg Tablet 1,000 mg PO BEDTIME RF: 0 Discontinued atenolol 100 mg tablet 50 mg PO DAILY@18 RF: 0 Discharge Orders: Discharge Order (Routine); Ordered 09/11/20 Ordered By: Eron Carr Referrals: Francesco Stone M.D [Physician] - 2 weeks (Follow-up of atrial fibrillation) Bora Rogel MD [Physician] - 7-10 days (Hyperthyroidism) Javy Fields MD [Primary Care Provider] - 4-7 days Discharge Diet: Cardiac Discharge Activity: Increase activity as tolerated Activity Restrictions/Additional Instructions: Take all medicine as prescribed Keep follow-up If any significant bleeding or black or tarry stools please notify your primary care provider Discharge Attestations Time Spent in Discharge Care*: greater than 30 min Quality Metrics Clinical Quality Measures During this hospital stay, did patient experience: None Coding Level of Care Code Acute Mentally Retarded Teacher for Chg Fwd Diagnoses Atrial fibrillation with rapid ventricular response I48.91 Essential hypertension I10 Mitral regurgitation I34.0 Hyperlipidemia E78.5 Pulmonary HTN I27.20
--- NOTE | 2020-09-11 10:31 | PM.PN ---
Subjective Subjective: Interval history: Patient is doing well. She denies complaints of chest pain, shortness of breath or palpitations. She is in normal sinus rhythm now. Vitals/I&O/Wt Last Vital Signs Temp 99.1 F 09/11/20 07:22 Pulse 71 09/11/20 07:22 Resp 22 H 09/11/20 07:22 BP 124/58 09/11/20 07:22 Pulse Ox 92 09/11/20 07:22 09/10/20 09/11/20 09/11/20 22:59 06:59 14:59 Intake Total 240 / 776.167 300 / 1076.167 Balance 240 / 776.167 300 / 1076.167 Physical Exam Narrative: EXAM NARRATIVE: GENERAL: Patient is alert, awake and oriented x3. [] NECK: No jugular vein distension. [] HEENT: No cyanosis. No icterus. No pallor. [] HEART: Regular rhythm, Tachycardic, No murmur, rub or gallop. [] LUNGS: Clear to auscultate bilaterally. [] ABDOMEN: Soft, nontender and nondistended. Positive bowel sounds. No guarding, rebound or tenderness. [] CENTRAL NERVOUS SYSTEM: Grossly nonfocal. [] EXTREMITIES: Lower extremities with 1+ edema bilaterally. Pulses palpable in the lower extremities, both dorsalis pedis and posterior tibial. [] Data : 09/11/20 04:29 09/11/20 04:29 A&P Assessment and plan (1) Atrial fibrillation with rapid ventricular response: (2) Essential hypertension: Status: Acute (3) Mitral regurgitation: Status: Acute (4) Hyperlipidemia: Status: Acute (5) Pulmonary HTN: Status: Acute Patient has new onset atrial fibrillation with RVR. Her TSH is low and free T4/T 3 elevated consistent with hyperthyroidism. Her left atrium is enlarged with mild to moderate mitral regurgitation. LV systolic function is normal Given CHADS VASC score of 4, she will need anticoagulation for stroke prevention. Continue Eliquis 5 mg BID Patient has converted to NSR.Continue cardizem/metoprolol 50mg BID Hyperthyroidism treatment per medicine team. Outpatient follow up with cardiology. Patient is stable to be discharged from cardiology standpoint. Thank you for involving us with care of this patient. Please call with questions. Attestations Medical Necessity Statement*: Care expected to cross 2 midnights Coding Level of Care Code Acute Operations Officer [employer] for Chg Fwd Diagnoses Atrial fibrillation with rapid ventricular response I48.91 Essential hypertension I10 Mitral regurgitation I34.0 Hyperlipidemia E78.5 Pulmonary HTN I27.20
--- NOTE | 2020-09-11 13:31 | PC.NURSE ---
Discharge instructions given per the physician's orders. Patient verbalized understanding of teaching and medication changes. IV has been discontinued. Patient is dressing self, to be taken home by in private vehicle. Discharge medications delivered to bedside. No further needs identified at this time. Nurse to continue to monitor.
== END 2020-09-11 13:45 | disposition home or self-care (01) | DRG 310 ==
LOC: ER 11:25 → CSU 12:19
PROVIDERS: Admitting Provider Internal Medicine; Emergency Provider Family Medicine; PCP Family Medicine; Visit Provider Internal Medicine
DX: I48.91 Unspecified atrial fibrillation (principal); I34.0 Nonrheumatic mitral (valve) insufficiency; I27.20 Pulmonary hypertension, unspecified; E78.5 Hyperlipidemia, unspecified; I34.1 Nonrheumatic mitral (valve) prolapse; I10 Essential (primary) hypertension; K21.9 Gastro-esophageal reflux disease without esophagitis
CPT/HCPCS: 12345; 36415; 71045; 76536; 80048; 80053; 81003; 83036; 83735; 83880; 84439; 84443; 84481; 84484; 85025; 85378; 93005; 93306; 96365; 96366; 96372; 96375; 96376; 99285; J1650; J1940; J3490

== ENCOUNTER 2020-09-22 10:19 | Outpatient (CLI) | payer MEDICARE, OTHER, SELFPAY ==
[2020-09-22 11:05] LABS: Alanine Aminotransferase 12 U/L (0-33); Albumin Level 4.2 g/dL (3.5-5.2); Alkaline Phosphatase 72 IU/L (35-105); Anion Gap 12.3 (5-19); Aspartate Amino Transferase 17 U/L (0-32); Blood Urea Nitrogen 11 mg/dL (8-23); Calcium 9.4 mg/dL (8.5-10.5); Carbon Dioxide 30 mmol/L (22-29); Chloride 100 mmol/L (98-107); Globulin 2.6 g/dL (1.3-4.6); Glucose 86 mg/dL (65-115); Osmolality Calculated 285 mOsm/kg (285-295); Potassium 4.3 mmol/L (3.5-5.1); Sodium 138 mmol/L (136-145); Total Bilirubin 0.3 mg/dL (0.15-1.2); Total Protein 6.8 g/dL (6.6-8.7)
== END 2020-09-22 10:20 | disposition home or self-care (01) ==
LOC: LAB 10:23
PROVIDERS: PCP Family Medicine; Visit Provider Internal Medicine
DX: E05.90 Thyrotoxicosis, unspecified without thyrotoxic crisis or storm (principal); I48.91 Unspecified atrial fibrillation
CPT/HCPCS: 36415; 80053; 99204

== ENCOUNTER 2020-09-28 10:24 | Outpatient (CLI) | payer MEDICARE, OTHER, SELFPAY ==
[2020-09-29 11:52] LABS: T3 Total 99 ng/dL (76-181)
[2020-10-03 19:53] LABS: TSH Receptor Binding Antibody <1.00 IU/L (< OR = 2.00)
== END 2020-09-28 10:25 | disposition home or self-care (01) ==
PROVIDERS: PCP Family Medicine; Visit Provider Internal Medicine
DX: E05.90 Thyrotoxicosis, unspecified without thyrotoxic crisis or storm (principal)
CPT/HCPCS: 36415; 83516; 84439; 84480

== ENCOUNTER 2020-10-26 08:58 | Outpatient (CLI) | payer MEDICARE, OTHER, SELFPAY ==
--- NOTE | 2020-10-26 09:04 | NM_ITS ---
WS: [id number] NUCLEAR MEDICINE 24 HOUR I-123 THYROID UPTAKE INDICATION: Hyperthyroidism TECHNIQUE: I-123 24 HOUR THYROID UPTAKE WITH PLANAR IMAGING. 129 [facility] ZECHARIAH 123 COMPARISON: Ultrasound thyroid September 10, 2020 FINDINGS: Normal symmetric thyroid uptake in both thyroid lobes 24 hour images. 24 hour thyroid uptak e 33.5% at the upper end of the range but within normal limits. NORMAL 24H THRYOID UPTAKE 8-35% NM/NM thyroid uptake [facility] [id number] IMPRESSION: 24-hour thyroid uptake 33.5% at the upper end of the range but with in normal limits
== END 2020-10-26 08:59 | disposition home or self-care (01) ==
LOC: NM 08:58
PROVIDERS: PCP Family Medicine; Visit Provider Internal Medicine
DX: E05.90 Thyrotoxicosis, unspecified without thyrotoxic crisis or storm (principal)
CPT/HCPCS: 78014; A9516

== ENCOUNTER 2021-08-01 08:23 | Outpatient (CLI) | payer MEDICARE, OTHER, SELFPAY ==
[2021-08-01 08:52] VITALS: BP 111/68; PULSE 60; RESP 17; TEMP 36.7; O2SAT 96; BMI 26.6
[2021-08-01 09:17] VITALS: BP 119/67; PULSE 53; RESP 17; O2SAT 95
[2021-08-01 10:01] VITALS: BP 108/62; PULSE 56; RESP 18; TEMP 36.5; O2SAT 95
== END 2021-08-01 08:24 | disposition home or self-care (01) ==
PROVIDERS: PCP Family Medicine; Visit Provider Family Medicine
DX: U07.1 COVID-19 (principal)
CPT/HCPCS: 96365

== ENCOUNTER → 2022-01-17 15:03 | Outpatient (BNVA) | payer MEDICARE, OTHER, SELFPAY | PROVIDERS: PCP Family Medicine; Visit Provider Family Medicine | DX: E78.5 Hyperlipidemia, unspecified (principal); I48.91 Unspecified atrial fibrillation; E05.90 Thyrotoxicosis, unspecified without thyrotoxic crisis or storm | CPT/HCPCS: 80053; 84439; 84443; 84481; 85025 ==

== ENCOUNTER 2022-05-10 06:00 | Outpatient (RCR) | payer MEDICARE, OTHER, SELFPAY | END 2022-06-08 23:59 | disposition home or self-care (01) | LOC: SOT 06:00 | PROVIDERS: PCP Family Medicine; Visit Provider Orthopaedic Surgery | DX: Z47.89 Encounter for other orthopedic aftercare (principal) | CPT/HCPCS: 97018; 97110; 97140; 97166 ==

== ENCOUNTER 2022-06-09 06:00 | Outpatient (RCR) | payer MEDICARE, OTHER, SELFPAY | END 2022-07-09 23:59 | disposition home or self-care (01) | LOC: SOT 06:00 | PROVIDERS: PCP Family Medicine; Visit Provider Orthopaedic Surgery | DX: Z47.89 Encounter for other orthopedic aftercare (principal) | CPT/HCPCS: 97018; 97110; 97140 ==

== ENCOUNTER → 2022-07-14 10:41 | Outpatient (BNVA) | payer MEDICARE, OTHER, SELFPAY | PROVIDERS: PCP Family Medicine; Referring Provider Family Medicine; Visit Provider Student in an Organized Health Care Education/Training Program | DX: M17.11 Unilateral primary osteoarthritis, right knee (principal); M94.262 Chondromalacia, left knee | CPT/HCPCS: 73560; 73565; 99204 ==

== ENCOUNTER → 2022-07-21 14:06 | Outpatient (BNVA) | payer MEDICARE, OTHER, SELFPAY | PROVIDERS: PCP Family Medicine; Visit Provider Family Medicine | DX: E05.90 Thyrotoxicosis, unspecified without thyrotoxic crisis or storm (principal); I48.0 Paroxysmal atrial fibrillation; I10 Essential (primary) hypertension; M17.11 Unilateral primary osteoarthritis, right knee | CPT/HCPCS: 80053; 84443; 85025 ==

== ENCOUNTER 2022-07-28 12:51 | Outpatient (CLI) | payer MEDICARE, OTHER, SELFPAY ==
--- NOTE | 2022-07-28 13:00 | CT_ITS ---
WS: [id number] CT RIGHT knee, noncontrast HISTORY: knee pain TECHNIQUE: Protocol for DAO total knee replacement has been obtained. This includes axial imaging th rough the RIGHT hip, RIGHT knee and RIGHT ankle. DLP: 934.14 mGy.cm COMPARISON: None available. Pelvis: Symmetric hips. No destructive bone process. RIGHT knee: minimal joint space narrowing. No significant joint effusion. RIGHT ankle: Negative. CT/CT knee RT wo con* [id number] IMPRESSION: CT imaging provided for [facility] robotic total knee replacement.
== END 2022-07-28 12:52 | disposition home or self-care (01) ==
LOC: RAD 12:55
PROVIDERS: PCP Family Medicine; Visit Provider Student in an Organized Health Care Education/Training Program
DX: M25.561 Pain in right knee (principal)
CPT/HCPCS: 73700

== ENCOUNTER 2022-08-03 05:58 | Day surgery (SDC) | payer MEDICARE, OTHER, SELFPAY ==
[2022-07-27 13:02] VITALS: BMI 27.4
--- NOTE | 2022-07-27 13:36 | ANES.PREANE2 ---
Pre-Anesthetic Assessment Height/Weight: Height 1.65 m Weight 74.843 kg Operation Date: 08/03/22 07:40 Proposed Procedures p Pierce Robot Total Knee Arthroplasty(Right) - Adi Enriquez DO Familial anesthetic complications: none Was Beta Humphrey taken within 24 hours: Yes Was Clonidine taken within 24 hours: N/A Social No alcohol and No tobacco Exam alert, oriented x 3, clear to auscultation bilaterally and regular rate & rhythm Airway Submandibular: within normal limits Cervical ROM: within normal limits Mallampati: Class II Dentition: caps CV/HEM Hypertension GI Gastroesophageal Reflux Disease Metabolic Hyperlipidemia Musc/skel Osteoarthritis/DJD Anesthetic Plan ASA status: 2 Anesthesia: Choice Other: Discussed GA, SAB and adductor blk Medications/Allergies Home Medications Medication Instructions Recorded Confirmed Last Taken Type cetirizine 10 mg tablet (Zyrtec) 10 mg PO DAILY@01/01/20 07/27/22 07/27/22 History lansoprazole 15 mg capsule,delayed 15 mg PO DAILY@01/01/20 07/27/22 07/26/22 History release (Prevacid) acetaminophen 500 mg tablet 1,000 mg PO BEDTIME 09/09/20 07/27/22 07/27/22 History (Tylenol Extra Strength) multivitamin 1 tab PO DAILY@08 09/09/20 07/27/22 07/27/22 History Lactobacillus acidophilus 10 mg PO DAILY 09/22/20 07/27/22 07/27/22 History (Acidophilus capsule) ascorbate calcium (vitamin C) 500 1 g PO BID 09/22/20 07/27/22 07/27/22 History mg tablet black elderberry 1 mg PO DAILY 09/22/20 07/27/22 07/26/22 History calcium 600 mg-D3 800 unit-mag11 1 tab PO DAILY 09/22/20 07/27/22 07/20/22 History 50 ph-bfss-umckes-paulo-s.borat tablet cholecalciferol (vitamin D3) 125 125 mcg PO DAILY 09/22/20 07/27/22 07/27/22 History mcg (5,000 unit) capsule glucosamine HCl 1,500 mg tablet 1,500 mg PO BID 09/22/20 07/27/22 07/27/22 History melatonin 1 mg tablet 1 mg PO .bedtime 03/07/27/22 07/26/22 History atorvastatin 10 mg tablet 10 mg PO DAILY 05/16/22 07/27/22 07/27/22 History metoprolol tartrate 25 mg tablet 25 mg PO BID 07/21/22 07/27/22 07/27/22 History Allergies Allergy/AdvReac Type Severity Reaction Status Date / Time amoxicillin Allergy Unknown Unknown Verified 07/27/22 12:53 azithromycin [From Zithromax] Allergy Unknown Unknown Verified 07/27/22 12:53 erythromycin base Allergy Unknown Unknown Verified 07/27/22 12:53 [facility] Anesthesia Medical History Atrial fibrillation with rapid ventricular response Chondromalacia, left knee Essential hypertension GERD (gastroesophageal reflux disease) Hiatal hernia Hyperlipidemia Mitral regurgitation MVP (mitral valve prolapse) Pulmonary HTN Surgical History Esophageal dilatation History of D&C S/P cataract extraction S/P hernia repair Family History Father Cancer PROSTATE Mother Cancer CHF (congestive heart failure) Social History Smoking and tobacco status: never smoked Second hand smoke exposure: No Alcohol intake: never Household members: spouse Marital status: Data Anesthesia Cardiac Studies: Echocardiogram Ultrasound 09/09/20 Holter Monitor 01/17/20
[2022-08-03] VITALS (17 sets, daily range): BP systolic 92–140; BP diastolic 42–66; PULSE 56–84; RESP 15–20; TEMP 36.1–36.8; O2SAT 92–96
[2022-08-03] MEDS: sodium chloride 0.9% 1,000 ML 30 ML IV (06:45)
--- NOTE | 2022-08-03 06:52 | P.ANESUD_ITS ---
Pre-Anesthetic Update Pre-Anesthetic Assessment: Date of Surgery/Procedure: 08/03/22 Preop Naz gnosis: Right knee degenerative joint disease, failed conservative treatment Proposed Procedure: Operation Date: 08/03/22 07:00 Proposed Procedures p Pierce Robot Total Knee Arthroplasty(Right) - Adi Enriquez, DO Any changes to Pre-Anesthetic Assessment?: No Last Intake: Intake Last Liquid Date 08/02/22 Last Liquid Time 18:00 Last Solid Date 08/02/22 Last Solid Time 18:00 Vitals: Temperature 98.0 F 08/03/22 06:21 Temperature Source Temporal Artery S can 08/03/22 06:21 Pulse Rate 56 L 08/03/22 06:21 Pulse Rhythm 08/03/22 06:21 Pulse Strength 3+ Normal 08/03/22 06:21 Respiratory Rate 18 08/03/22 06:21 Blood Pressure 140/66 08/03/22 06:21 Blood Pressure Katerine n 90 08/03/22 06:21 Pulse Oximetry 96 08/03/22 06:21 Oxygen Delivery Me thod 08/03/22 06:21 Exam: Pre-Anes Outpt Exam: alert, oriented x 3, clear to auscultation bilaterally and regular rate & rhythm Cardiac Studies: Echocardiogram Ultrasound 09/09/20 Holter Monitor 01/17/20
[2022-08-03 06:57] LABS: Add Urine Microscopic? NO; Charge for UA Resulting for Rev
[2022-08-03 07:05] LABS: Bilirubin Urine Neg (Negative); Blood Urine Neg (Negative); Glucose Urine UA Norm (Normal); Ketones Urine Negative (Negative); Leukocyte Esterase Urine Negative (Negative); Nitrate Urine Negative (Negative); Protein Urine Neg (Negative); Urine Appearance Clear (CLEAR); Urine Color Straw (Yellow); Urobilinogen Urine Neg (Negative); pH Urine 7 (5-7)
--- NOTE | 2022-08-03 07:10 | W.PM.OPSUD ---
Surgery/Procedure H&P Update DATE OF PROCEDURE: August 03, 2022 DATE H&P PERFORMED: 07/14/22 CHANGES TO PREVIOUS DOCUMENTATION: None. Patient's failed conservative treatment in the outpatient setting. She is been seen evaluated by Anesthesia Department cleared by her primary care physician, patient's received a preoperative CT scan for Pierce total knee arthroplasty. A.m. labs UA is clean. At this point talked about risk benefits complication alternatives surgical nonsurgical treatment options. Understanding her wrist she agrees to proceed with surgical intervention of her right total knee arthroplasty. Patient understands agrees with current plan. All questions answered. PREOP DIAGNOSIS: Right knee degenerative joint disease, failed conservative treatment PRIMARY INDICATION FOR PROCEDURE: Right knee degenerative joint disease failed conservative treatment PLANNED PROCEDURE: Operation Date: 08/03/22 07:00 Proposed Procedures p Pierce Robot Total Knee Arthroplasty(Right) - Adi Enriquez DO
[2022-08-03] MEDS: ketorolac 30 mg/mL INJ IVP (07:26)
[2022-08-03] MEDS: acetaminophen 1,000 MG/100 ML PIGGYBACK 400 MG IV ×3 (07:27→22:40)
[2022-08-03] MEDS: clindamycin 600 MG/50 ML PREMIX 100 MG IV (07:33)
[2022-08-03] MEDS: EPINEPHrine 1 mg/mL INJ XX (08:20)
[2022-08-03] MEDS: tranexamic acid 1,000 mg/10mL SDV 1000 MG XX (08:20)
[2022-08-03] MEDS: ketorolac 30 mg/mL INJ XX (08:20)
--- NOTE | 2022-08-03 08:50 | ANES.PROC ---
Anesthesia Procedures Procedure/Date: 08/03/22 adductor, genicular, pop plexus nerve blocks Nerve Block ^: Nerve Block 1: Main Anesthesia: spinal anesthesia block Time Out Performed: Yes Consent: requested by attending/covering physician, risks and benefits reviewed and patient agrees to proceed Nerve block location: adductor canal and other (pop plexus, genicular) Anesthesia monitors applied: pulse oximetry, EKG, BP cuff and oxygen Nerve block position: supine Anesthetic Used: ropivicaine 0.5% Amount of anesthesia used (mL): 55 Ultrasound used to: recognize landmarks and visualize and ID femerol nerve Nerve Stimulator Used?: No Interscalene/Femoral BLK: 4 stimuplex 21 g needle used for position and inplane approach, visualize local anesthetic spread and no vascular puncture identified Injection: neg aspiration of heme and paresthesia +/- (negative) Patient Tolerated Procedure: well and no complications Complications: none Additional Comments: verbal communication maintained with patient throughout procedure. No resistance to injection.
--- NOTE | 2022-08-03 09:37 | XR_ITS ---
WS: [id number] Exam: XR knee RT 1-2V [id number] Date/Time of Exam: 08/03/2022 10:09 AM Reason For Exam: postop TKA Comparison 07/14/2022. Right total knee replacement noted in excellent position. Postoperative changes in the adjacent soft tissues. XR/XR knee RT 1-2V [id number] IMPRESSION: 1. Right total knee replacement in excellent position.
--- NOTE | 2022-08-03 09:46 | P.OP_ITS ---
Brief Operative Note Date of procedure: 08/03/22 Pre-op diagnosis: Right knee degenerative joint disease, failed conservative t reatment Post-op diagnosis: same Procedure Done: Right total knee arthroplasty?Pierce Surgeon: Adi Enriquez Estimated blood loss (mL): 25 Complications: None Post-op Plan: Patient taken to PACU in stable condition. Patient will be admitted to the floor. Internal medicine on board for medical management. Postoperative x- rays. Postoperative TXA, antibiotics, DVT prophylaxis and pain control. Will work with therapy. Anticipate overnight stay tonight and likely discharge tomorrow. Dressings on in place clean dry and intact. Weightbearing as tolerated right lower extremity. Follow-up with Dr. Enriquez in the office in 2 weeks Condition: stable Disposition: floor Coding Level of Care Code Acute Code for Timbo Costello
--- NOTE | 2022-08-03 09:48 | PM.PACU ---
PACU note Narrative: Patient taken to PACU in stable condition recovering well. Spinal anesthesia wearing off. She has sensation tact light touch distally to the right lower extremity. She able to wiggle toes, plantarflex and dorsiflex ankle. Distal pulses are palpable. Dressings on in place clean dry and intact. Exam: awake Disposition: admitted
--- NOTE | 2022-08-03 09:48 | PM.OP ---
Operative Report Date of procedure: August 03, 2022 Pre-op diagnosis: Preop Diagnosis Right knee degenerative joint disease, failed conservative treatment Post-op diagnosis: Same Procedure done: Right total knee arthroplasty?robotic assisted Pierce Implants: Josh triathlon Femur size 4 right CR cemented Tibia size 3 universal cemented Poly-12 mm Patella?33 symmetric cemented Surgeon: Adi Enriquez DO Estimated blood loss: 25mL 71 minutes IV fluids: See anesthesia record Urine output: See anesthesia record Complications: None Findings: See operative report narrative Condition: stable Disposition: floor Brief History: Patient seen evaluated in the outpatient setting and worked up for preoperative diagnosis of severe degenerative joint disease of the right knee.? She has failed conservative treatment.? At this point we had discussion about treatment options and through shared decision making she elects to proceed with a right total knee arthroplasty-Pierce.? She understands the risk benefits complications alternatives to surgical nonsurgical treatment options.? Risks of surgery he agrees proceed.? She has been seen by his primary care physician who is cleared her for surgery as well as anesthesia department has seen patient and cleared for surgery.? Preoperative holding area consent reviewed and signed and agreeable to surgical intervention.? All questions answered at this time. Procedure: Patient seen evaluated in the preoperative holding area.? Consent was reviewed with patient and signed.? The correct extremity was then marked.? Patient seen evaluated by the anesthesia and preoperative team once cleared for surgery was taken back to the operative suite.? Patient taken back to the operative suite.? She underwent spinal anesthesia per the anesthesia department.? transported the operative table.? All bony prominences well-padded patient was appropriately secured to the bed.? Nonsterile tourniquet applied to right thigh. This point time the right lower extremity was then prepped and draped in standard orthopedic fashion.? Patient received appropriate preoperative antibiotics.? Final timeout performed. Esmarch tourniquet was used exsanguinate the right lower extremity.? Tourniquet was insufflated to 300 mmHg. A standard anterior incision was made over midline of the knee.? Sharp scalpel excision through skin and subcutaneous tissue full-thickness skin flaps were made.? Fascia was elevated off of the extensor retinaculum was stable with medial parapatellar arthrotomy was then made.? The performed standard sequential releases with a slight medial release just to accommodate for tibial pins as patient does have a valgus deformity.? It is apparent patient had eburnated bone in all 3 of the compartments with osteophyte formation in all 3 compartments. Next the the patella was then stuffed laterally and the knee was then flexed.? Hohmann was placed anteromedial and I freed the anterior aspect of the femur with a rongeur removing all synovium and a Lucas elevator. I subsequently then placed by 2 femur pins to establish my femur arrays for the [employer] robot.? These were then placed bicortically and by femur array was then appropriately secured with appropriate visualization.? Next attention was turned towards the tibial rays.? These were then drilled sequentially bicortically in parallel fashion.? I then placed my guide as well as my tibial array on in place.? This was appropriately secured and had excellent visualization with the Pierce robot.? Next the tibial checkpoint as well as femur checkpoint were then placed.? At this point time I then subsequently established my head center as well as my medial lateral malleoli as well as my checkpoints.? Next utilizing standard [employer] technology I then mapped out the appropriate points and confirmation points around the femur as well as the tibia in standard fashion.? Once this was then done I then removed all osteophytes in preparation for dynamic testing.? All osteophytes were removed as well as I removed the ACL and left the PCL intact.? At this point time the knee was brought into full extension and we performed our standard evaluation of our gap balancing stressing her ligaments and extension as well as flexion appropriate adjustments were made to have appropriate gap balancing in both flexion and extension.? Given patient's valgus deformity we did add a degree of valgus into our implant to accommodate for gap balancing. We get a preoperative plan evaluating our implants which was a size 4 femur and a size 3 tibia.? Next we brought in the Pierce robot and sequentially made our femur cuts. Collaterals were protected throughout the case.? All excess bony cuts were then removed.? Finally we made our tibial cut.? Once this was done a standard PCL retractor was then placed into this position I excised the medial and lateral meniscus.? The tibial cut was then subsequently removed all excess bony debris was removed.? I then utilized a lamina human resources benefits specialist and remove the posterior osteophytes.? At this point time sized the tibia and confirmed this was a size 3.? I utilized our blunt probe to establish rotation of? tibial implant using the Pierce robot. Once this was done I then placed my tibia size 3 trial in appropriate position and then subsequently placed tibial pins to hold this into place placed a size 9 mm poly as well as a size 4 femur which was appropriately impacted in place knee was then subsequently brought into extension.? hyperextension was then subsequently noted.? I increased my poly thickness to 12 mm and this was stable with varus valgus stress.? Bringing up into flexion this did feel slightly tight.? Then utilizing electrocautery performed a standard PCL release as we were using ultracongruent tibial poly.? Once this was done I had excellent balance gaps in flexion and extension with varus and valgus stresses.? At this point I was satisfied with these implants these were then verified and opened on the back table size 3 tibia size 4 femur size 12 mm poly.? We did confirm appropriate gap balancing and stresses as well as alignment utilizing? Pierce and were satisfied with this plan.? At this point time with my trials in place I then towel clip the patella everted this made appropriate measurements subsequently utilizing freehand technique performed by patellar resurfacing this was confirmed to be appropriate resection and subsequently sized to be a symmetric 33 mm.? My drill peg guides were then clamped and appropriate position and appropriate position in the patella for appropriate tracking and parallel with the joint.? Pegs were drilled trial femur implant and the knee was then subsequently ranged and found to have excellent patellar tracking.? At this point time all of our trial implants were removed.? The wound bed and bone was thoroughly dried and prepped for cementation.? Cement was mixed on the back table.? Once cement was ready this was then covered onto the tibia and the tibial baseplate was then impacted and all excess cement was removed.? Next the polyethylene was then impacted into place and the tibial baseplate.? Next cement was placed onto the femur as well as under the femur implants and impacted in to place and all excess cement was extruded.? Knee was taken into full extension? to clear all excess cement was removed.? Warm saline was placed over the joint.? I then towel clip patella and cemented the patella into place.? This was all clamped and the cement was allowed to cure.? Thorough irrigation performed with pulse lavage.? I then placed my periarticular injection while the cement was curing.? Once cured the knee was taken through range of motion and had excellent stability with varus valgus stress and stable? in flexion.? Tourniquet was then deflated.? Once tourniquet was deflated hemostasis satisfactory with electrocautery.? Next I then subsequently closed the capsule with a running strata fix suture.? Knee was then taken through range of motion 30 times.? Next the skin was then closed in layered fashion utilizing running strata fix sutures for deep subcu as well as superficial and a Monocryl strata fix suture was used for the skin. Knee was closed in flexion and Prineo glue was then placed over the incision this allowed to set.? Incision was covered with ABDs soft roll and Rivera wrap.? Patient was then awakened from anesthesia and taken to PACU in stable condition. Disposition: Patient taken to PACU in stable condition will be admitted to the floor for pain control PT/OT weight-bear as tolerated right lower extremity dressing changes as needed, DVT prophylaxis.? Postoperative TXA as well as postoperative antibiotics. Patient will be seen today by the internal medicine team for medical management.? Patient will follow up with the office in 2 weeks.? Patient understands agrees with current plan.? All questions answered.
--- NOTE | 2022-08-03 10:03 | P.CONIM_ITS ---
Providers/Reason For Consult Consulting Physician/Specialty*: Eron Carr MD, hospitalist Reason for Consult*: Medical management Attending Physician: Adi Enriquez DO Primary Care Provider: Javy Fields MD History of Present Illness History of Present Illness Wendy Toth is a 77 year old female presenting today for an elective right total knee arthroplasty done secondary to severe degenerative joint disease. I am seeing her in the recovery room. She underwent surgery today without complication. I am being consulted for medical management. Patient is groggy but able answer some questions. We discussed her previous hospital stay, and September 2020 when she was diagnosed with hyperthyroidism, atrial fibrillation, and went on anticoagulation at that time. She states she had some problems with bleeding on the anticoagulation and this was eventually stopped secondary to anal outlet bleeding. She had had no recurrent bleeding since it was discontinued. She was on methimazole for a while, but this was eventually discontinued and her thyroid testing has returned to normal on September 18. She does relate she is still on metoprolol, although this is not evident on her home medication list. Previous list indicated 25 mg twice daily, and she reports she took it prior to coming in today for surgery. Postoperative pain currently under control. Review of Systems Const: Denies: fever(s) or chills Eyes: Denies: change in vision ENMT: Denies: throat pain Card: Denies: chest pain Resp: Denies: dyspnea GI: Reports: hematochezia (Previously when on anticoagulant but none now); Denies: abdominal pain : Denies: flank pain Musc: Denies: neck pain Skin/Breast: Denies: rash Neuro: Denies: headache(s) Psych: Denies: anxiety or depression Endo: Denies: polyuria Edi/Lymph: Denies: easy bruising All/Imm: Denies: urticaria Medications/Allergies Home Medications Medication Instructions Recorded Confirmed Last Taken Type cetirizine 10 mg tablet (Zyrtec) 10 mg PO DAILY@01/01/20 08/01/22 08/02/22 History lansoprazole 15 mg capsule,delayed 15 mg PO DAILY@18 01/01/20 08/01/22 08/02/22 History release (Prevacid) acetaminophen 500 mg tablet 1,000 mg PO BEDTIME 09/09/20 08/01/22 08/02/22 History (Tylenol Extra Strength) multivitamin 1 tab PO DAILY@08 09/09/20 08/01/22 08/02/22 History Lactobacillus acidophilus 10 mg PO DAILY 09/22/20 08/01/22 08/02/22 History (Acidophilus capsule) ascorbate calcium (vitamin C) 500 1 g PO BID 09/22/20 08/01/22 08/02/22 History mg tablet black elderberry 1 mg PO DAILY 09/22/20 08/01/22 07/26/22 History calcium 600 mg-D3 800 unit-mag11 1 tab PO DAILY 09/22/20 08/01/22 07/20/22 History 50 jw-bvkb-zmvpru-paulo-s.borat tablet cholecalciferol (vitamin D3) 125 125 mcg PO DAILY 09/22/20 08/01/22 08/02/22 History mcg (5,000 unit) capsule glucosamine HCl 1,500 mg tablet 1,500 mg PO BID 09/22/20 08/01/22 08/02/22 History melatonin 1 mg tablet 1 mg PO .bedtime 09/22/20 08/01/22 08/02/22 History atorvastatin 10 mg tablet 10 mg PO DAILY 08/03/22 08/03/22 08/02/22 History Allergies Allergy/AdvReac Type Severity Reaction Status Date / Time amoxicillin Allergy Unknown Unknown Verified 08/01/22 15:18 azithromycin [From Zithromax] Allergy Unknown Unknown Verified 08/01/22 15:18 erythromycin base Allergy Unknown Unknown Verified 08/01/22 15:18 Current Medications Generic Name Dose Route Start Last Admin Trade Name Freq PRN Reason Stop Dose Admin Sodium Chloride 1,000 mls @ 30 mls/hr 08/03/22 06:15 08/03/22 08:40 Sodium Chloride 0.9% IV 08/04/22 06:14 Infused .Q24H NAIF Infusion PFSH Acute PFSH: Medical History Atrial fibrillation with rapid ventricular response Chondromalacia, left knee Essential hypertension GERD (gastroesophageal reflux disease) Hiatal hernia Hyperlipidemia Mitral regurgitation MVP (mitral valve prolapse) Pulmonary HTN Surgical History Esophageal dilatation History of D&C S/P cataract extraction S/P hernia repair Family History Father Cancer PROSTATE Mother Cancer CHF (congestive heart failure) Social History Smoking and tobacco status: never smoked Second hand smoke exposure: No Alcohol intake: never Household members: spouse Marital status: Vitals/I&O/Wt Last Vital Signs Temp 98.0 F 08/03/22 06:21 Pulse 56 L 08/03/22 06:21 Resp 18 08/03/22 06:21 BP 140/66 08/03/22 06:21 Pulse Ox 96 08/03/22 06:21 O2 Del Method 08/03/22 06:21 08/02/22 08/03/22 08/03/22 22:59 06:59 14:59 Intake Total 1260 / 1260 Balance 1260 / 1260 Physical Exam Narrative: General exam is a white female, groggy but able to respond, directly following knee surgery HEENT: Atraumatic normocephalic. It was equally round. Oropharynx clear. Neck is supple no lymphadenopathy thyromegaly Cardiovascular regular rate and rhythm, 2/6 systolic murmur, no S3 or S4 Lungs clear no wheezing or crackles Abdomen is soft nontender positive bowel sounds. No obvious organomegaly exams deferred Extremities no cyanosis clubbing or edema. No foot drop bilaterally. Brace on right lower extremity Skin no rash Neuro no obvious focal deficits Urinary Catheter Management: Acosta: Cath Placed During This Visit: yes Urinary Catheter Date of Insertion: 08/03/22 Urinary Catheter Time of Insertion: 08:00 Data Other Labs: Previous laboratory on July 21 demonstrated a normal hemoglobin. Platelets and white blood cell count were normal. Creatinine was 0.5 and electrolytes were all normal. Urinalysis was - August 03. TSH was checked July 21 and was normal. Previous chest x-ray February 18 was significant for mild cardiomegaly, otherwise negative. Previous echocardiogram September 2020 demonstrated normal EF, mild to moderate mitral regurgitation, mild to moderate tricuspid regurgitation. Right ventricular systolic pressure was 30 A&P Assessment and plan (1) Osteoarthritis of right knee: Status post total knee arthroplasty, doing well (2) Atrial fibrillation: Currently in sinus rhythm She indicates she is on metoprolol. We will reconcile her medication list again, and certainly continue this if she is on it. She reports she has stopped all anticoagulation secondary to previous rectal bleeding. At this point I do not think she necessarily needs telemetry, unless tachycardia should present. Qualifiers: Atrial fibrillation type: paroxysmal Qualified Code(s): I48.0 - Paroxysmal atrial fibrillation (3) Hyperthyroidism: Recent TSH normal. She has been taken off methimazole. Plan Past history of rectal bleeding on anticoagulant. Encouraged her to visit with her primary care provider regarding this past history. Thank you for this consultation. Consult Attestations Medical Necessity Statement: As per primary Coding Level of Care Code Acute Code for [facility] Fwd Diagnoses Osteoarthritis of right knee M17.11 Atrial fibrillation I48.0 Atrial fibrillation type: paroxysmal Hyperthyroidism E05.90
[2022-08-03] MEDS: chlorhexidine gluconate 0.12% Btl 473 mL 30 ML MUCOUS MEM ×4 (11:45→20:06)
[2022-08-03] MEDS: cholecalciferol (vitamin D3) 1,000 unit Tablet 1000 UNIT PO (11:47)
[2022-08-03] MEDS: calcium carbonate 500 mg Chew Tablet 1000 MG PO ×2 (11:47→18:26)
[2022-08-03] MEDS: iron polysaccharide complex 150 mg Capsule PO ×2 (11:48→18:26)
[2022-08-03] MEDS: multivitamin therapeutic Tablet 1 TAB PO (11:48)
[2022-08-03] MEDS: docusate sodium 100 mg Capsule PO ×2 (11:48→18:26)
[2022-08-03] MEDS: mupirocin oint 22 gm 1 APPLIC NASAL ×2 (11:49→18:27)
[2022-08-03] MEDS: lactated ringers 1,000 ML 100 ML IV ×2 (11:50→22:51)
[2022-08-03] MEDS: TRAMadol 50 mg Tablet PO ×3 (12:03→23:50)
--- NOTE | 2022-08-03 14:13 | ANE.PACU2 ---
Inpatient post-anesthesia follow up: Airway intact: Yes Vital signs: Temperature 97.5 F Pulse Rate 70 Respiratory Rate 16 Blood Pressure 109/56 Pulse Oximetry 94 Oxygen Delivery Me thod Room Air Oxygen Flow Rate Fraction of Inspir ed Oxygen Hydration adequate: Yes Nausea and vomiting: No Pain level: 1 Mental status: Baseline
[2022-08-03] MEDS: oxyCODONE 5 mg IR Tab/Cap PO ×2 (15:27→20:03)
[2022-08-03] MEDS: clindamycin 900 MG/50 ML PREMIX 100 MG IV ×2 (16:00→22:44)
[2022-08-03] MEDS: metoprolol tartrate 25 mg Tablet 37.5 MG PO (20:04)
[2022-08-04] VITALS (9 sets, daily range): BP systolic 92–115; BP diastolic 47–63; PULSE 57–66; RESP 16–18; TEMP 36.4–36.7; O2SAT 93–95
[2022-08-04] MEDS: ketorolac 30 mg/mL INJ 15 MG IVP ×3 (01:15→14:51)
[2022-08-04 02:31] LABS: Basophils % 0.1 %; Eosinophils % 0.1 %; Hematocrit 31.8 % (37.0-47.0); Hemoglobin 10.2 g/dL (11.5-15.3); Lymphocytes # 0.7 10^3/uL (0.8-4.8); Lymphocytes % 9.2 %; Mean Corpuscular HGB Conc 32.1 g/dL (30.0-36.0); Mean Corpuscular Volume 99.7 fl (81-99); Mean Platelet Volume 9.7 fL (7.4-10.4); Monocytes # 0.7 10^3/uL (0.2-0.9); Monocytes % 8.5 %; Neutrophils # 6.33 10^3/uL (1.8-7.7); Neutrophils % 81.7 %; Nucleated Red Blood Cells % 0 %; Platelet Count 165 10^3/cmm (130-400); Red Blood Count 3.19 10^6/uL (4.1-5.3); Red Cell Distribution Width 13.2 % (12.1-15.1); White Blood Count 7.8 10^3/uL (4.0-10.0)
[2022-08-04 02:56] LABS: Anion Gap 13.5 (5-19); Blood Urea Nitrogen 15 mg/dL (8-23); Calcium 8.9 mg/dL (8.5-10.5); Carbon Dioxide 25 mmol/L (22-29); Chloride 105 mmol/L (98-107); Glucose 95 mg/dL (65-115); Osmolality Calculated 289 mOsm/kg (285-295); Potassium 4.5 mmol/L (3.5-5.1); Sodium 139 mmol/L (136-145)
[2022-08-04] MEDS: TRAMadol 50 mg Tablet PO ×2 (04:13→11:20)
[2022-08-04] MEDS: acetaminophen 1,000 MG/100 ML PIGGYBACK 400 MG IV (06:24)
[2022-08-04] MEDS: clindamycin 900 MG/50 ML PREMIX 100 MG IV (06:24)
--- NOTE | 2022-08-04 08:14 | PM.PN ---
Subjective Subjective: Some problems with pain through the night, but doing well today. Denies any palpitations or chest discomfort. Medications: Reviewed: Yes Vitals/I&O/Wt Last Vital Signs Temp 98.1 F 08/04/22 03:09 Pulse 60 08/04/22 08:12 Resp 16 08/04/22 08:12 BP 105/51 08/04/22 05:45 Pulse Ox 95 08/04/22 08:12 O2 Del Method 08/04/22 08:12 08/03/22 08/04/22 08/04/22 22:59 06:59 14:59 Intake Total 1414.333 / 3124.333 150 / 3274.333 50 / 50 Output Total 600 / 1025 Balance 814.333 / 2099.333 150 / 2249.333 50 / 50 Physical Exam Narrative: General exam no distress Neck is supple no lymphadenopathy thyromegaly Cardiovascular regular rate and rhythm, 2/6 systolic murmur, no S3 or S4 Lungs clear no wheezing or crackles Abdomen is soft nontender positive bowel sounds. No obvious organomegaly Extremities no cyanosis clubbing or edema. Skin without rash Urinary Catheter Management: Acosta: Cath Placed During This Visit: yes, but has since been removed by the nurse Reason for Continuing Indwelling Catheter: Decision to DC Catheter Urinary Catheter Date of Insertion: 08/03/22 Urinary Catheter Time of Insertion: 08:00 Date Urinary Catheter Removed: 08/04/22 Time Urinary Catheter Discontinued: 06:32 Data 08/04/22 01:48 08/04/22 01:48 A&P Assessment and plan (1) Osteoarthritis of right knee: Status post total knee arthroplasty, doing well. Postoperative day #1 (2) Atrial fibrillation: Currently in sinus rhythm Metoprolol has been initiated per home dosing. She reports she has stopped all anticoagulation secondary to previous rectal bleeding, only with bowel movements. She reports her primary care provider is aware of this. Qualifiers: Atrial fibrillation type: paroxysmal Qualified Code(s): I48.0 - Paroxysmal atrial fibrillation (3) Hyperthyroidism: Recent TSH normal. She has been taken off methimazole. Plan Acute postoperative blood loss anemia. No need for transfusion. Hemoglobin 10.2, down from 12.8. Past history of rectal bleeding on anticoagulant. Encouraged her to visit with her primary care provider regarding this past history. Medically stable at this time, should discharge occur Attestations Medical Necessity Statement*: As per primary Coding Level of Care Code Acute Code for g Fwd Diagnoses Osteoarthritis of right knee M17.11 Atrial fibrillation I48.0 Atrial fibrillation type: paroxysmal Hyperthyroidism E05.90
[2022-08-04] MEDS: oxyCODONE 5 mg IR Tab/Cap PO ×2 (09:21→13:46)
[2022-08-04] MEDS: calcium carbonate 500 mg Chew Tablet 1000 MG PO (09:23)
[2022-08-04] MEDS: atorvastatin 40 mg Tablet 20 MG PO (09:23)
[2022-08-04] MEDS: cholecalciferol (vitamin D3) 1,000 unit Tablet 1000 UNIT PO (09:23)
[2022-08-04] MEDS: multivitamin therapeutic Tablet 1 TAB PO (09:23)
[2022-08-04] MEDS: iron polysaccharide complex 150 mg Capsule PO (09:23)
[2022-08-04] MEDS: docusate sodium 100 mg Capsule PO (09:23)
[2022-08-04] MEDS: metoprolol tartrate 25 mg Tablet PO (09:24)
[2022-08-04] MEDS: apixaban 5 mg Tablet 2.5 MG PO (09:24)
[2022-08-04] MEDS: mupirocin oint 22 gm 1 APPLIC NASAL (09:29)
[2022-08-04] MEDS: chlorhexidine gluconate 0.12% Btl 473 mL 30 ML MUCOUS MEM ×2 (09:29→13:47)
--- NOTE | 2022-08-04 11:36 | PM.PN ---
Subjective Subjective: Patient seen and examined this morning. Some pain issues overnight. Currently controlled with medications this morning. She has been up and walked with therapy. Acosta has been removed. Patient at this point feels ready to go home. Plan for home health care at discharge. Vitals/I&O/Wt Last Vital Signs Temp 97.6 F 08/04/22 08:00 Pulse 60 08/04/22 08:12 Resp 16 08/04/22 09:21 BP 104/47 08/04/22 08:00 Pulse Ox 95 08/04/22 08:12 O2 Del Method 08/04/22 08:12 08/03/22 08/04/22 08/04/22 22:59 06:59 14:59 Intake Total 1414.333 / 3124.333 150 / 3274.333 1290 / 1290 Output Total 600 / 1025 Balance 814.333 / 2099.333 150 / 2249.333 1290 / 1290 Physical Exam Narrative: Examination right lower extremity demonstrates Rivera bandage dressing on in place. Dressings clean dry and intact. Patient is able to wiggle toes plantarflex and dorsiflex ankle. Sensation intact light touch distally. Distal pulses palpable. Patient is able to achieve full extension and range to 60 degrees this a.m. Urinary Catheter Management: Acosta: Cath Placed During This Visit: yes, but has since been removed by the nurse Reason for Continuing Indwelling Catheter: Decision to DC Catheter Urinary Catheter Date of Insertion: 08/03/22 Urinary Catheter Time of Insertion: 08:00 Date Urinary Catheter Removed: 08/04/22 Time Urinary Catheter Discontinued: 06:32 Data 08/04/22 01:48 08/04/22 01:48 Xray Ortho: My impression: X-rays from PACU of the right knee reviewed in person interpreted by myself demonstrating stable right total knee arthroplasty with appropriate cement mantle no periprosthetic fracture noted. A&P Assessment and plan (1) Status post knee replacement: Plan Postoperative antibiotics Weight-bear as tolerated right lower extremity PT/OT Internal medicine on board for medical management appreciate their assistance Regular diet Pain control Eliquis for DVT prophylaxis Plan for discharge home later today after therapy with home health care. We will follow-up with Dr. Enriquez in the office in 2 weeks. Stable for discharge from Ortho standpoint once cleared by internal medicine. Attestations Medical Necessity Statement*: Postoperative care right total knee arthroplasty Coding Level of Care Code Acute Code for Chg Fwd Diagnoses Status post knee replacement Z96.659 Time Spent (min) 35
--- NOTE | 2022-08-04 14:20 | PM.DCS ---
Discharge Providers Date of Admission: August 03, 2022 Date of Discharge: August 04, 2022 Attending Provider at Admission: Adi Enriquez DO Attending Provider at Discharge: Adi Enriquez DO Consults: Hospitalist?internal medicine for medical management Primary Care Provider: Javy Fields MD Diagnoses at Discharge Discharge Diagnosis (1) Osteoarthritis of right knee: Status: Resolved (2) Atrial fibrillation: Status: Acute Qualifiers: Atrial fibrillation type: paroxysmal Qualified Code(s): I48.0 - Paroxysmal atrial fibrillation (3) Hyperthyroidism: Status: Acute Reason for Visit Reason for Visit: Pierce knee Brief History: Failed conservative treatment of right knee degenerative joint disease. Hospital Course Hospital Course Patient's been worked up in the outpatient setting for failed conservative treatment of a right knee degenerative joint disease. Elected to proceed with a right total knee arthroplasty. She is worked up in the outpatient setting seen evaluated by her primary care physician as well as Anesthesia Department. Once cleared for surgery she was then brought to the hospital in the preoperative holding area. Once cleared for surgery she was subsequently taken back to the operative suite and underwent a right total knee arthroplasty without complications. She was taken to PACU in stable condition once recovered in PACU she was then admitted to the floor. Internal medicine was consulted for evaluation and medical management assistance. Patient was placed on appropriate perioperative antibiotics as well as postoperative DVT prophylaxis. Labs were monitored postoperatively. Patient worked with PT/OT was weightbearing as tolerated to the right lower extremity. On postoperative day 1 it was determined patient was stable for discharge from orthopedic standpoint as well as internal medicine standpoint. She was set up with home health care at discharge. She subsequently was then discharged postop day 1. She will follow-up with Dr. Enriquez in the office in 2 weeks. Received appropriate discharge instructions as well as pain medication DVT prophylaxis postoperatively. She will follow-up with me in the office in 2 weeks. Physical Exam Narrative: Examination right lower extremity d emonstrates Rivera ba ndage dressing on in place.? Dressin gs clean dry and i ntact.? Patient is able to wiggle to es plantarflex and dorsiflex ankle.? Sensation intact light touch distal ly.? Distal pulses palpable.? Patien t is able to achie ve full extension and range to 60 de grees this a.m. Urinary Catheter Management: Acosta: Cath Placed During This Visit: yes, but has since been removed by the nurse Reason for Continuing Indwelling Catheter: Decision to DC Catheter Urinary Catheter Date of Insertion: 08/03/22 Urinary Catheter Time of Insertion: 08:00 Date Urinary Catheter Removed: 08/04/22 Time Urinary Catheter Discontinued: 06:32 Discharge Data Studies Completed and Pending Completed Studies During Hospitalization Category Date Time Status XR knee RT 1-2V [id number] Routine Exams 08/03/22 09:37 Completed Pending at discharge Category Date Time Status Basic Metabolic Panel AM LABS Lab 08/05/22 04:00 Ordered Basic Metabolic Panel AM LABS Lab 08/06/22 04:00 Ordered Complete Blood Count w/Auto AM LABS Lab 08/05/22 04:00 Ordered Complete Blood Count w/Auto AM LABS Lab 08/06/22 04:00 Ordered Radiology Impressions Knee X-Ray 08/03/22 09:37 IMPRESSION: 1. Right total knee replacement in excellent position. Laboratory Results WBC 7.8 10^3/uL (4.0-10.0) 08/04/22 01:48 RBC 3.19 10^6/uL (4.1-5.3) L 08/04/22 01:48 Hgb 10.2 g/dL (11.5-15.3) L 08/04/22 01:48 Hct 31.8 % (37.0-47.0) L 08/04/22 01:48 MCV 99.7 fl (81-99) H 08/04/22 01:48 MCH 32.0 pg (28.0-34.0) 08/04/22 01:48 MCHC 32.1 g/dL (30.0-36.0) 08/04/22 01:48 RDW 13.2 % (12.1-15.1) 08/04/22 01:48 Plt Count 165 10^3/cmm (130-400) 08/04/22 01:48 MPV 9.7 fL (7.4-10.4) 08/04/22 01:48 Neut % (Auto) 81.7 % 08/04/22 01:48 Lymph % (Auto) 9.2 % 08/04/22 01:48 [place] % (Auto) 8.5 % 08/04/22 01:48 Eos % (Auto) 0.1 % 08/04/22 01:48 Baso % (Auto) 0.1 % 08/04/22 01:48 Neut # (Auto) 6.33 10^3/uL (1.8-7.7) 08/04/22 01:48 Lymph # (Auto) 0.7 10^3/uL (0.8-4.8) L 08/04/22 01:48 [place] # (Auto) 0.7 10^3/uL (0.2-0.9) 08/04/22 01:48 Eos # (Auto) 0.0 10^3/uL (0.0-0.8) 08/04/22 01:48 Baso # (Auto) 0.0 10^3/uL (0.0-0.1) 08/04/22 01:48 Nucleated RBC % (auto) 0 % 08/04/22 01:48 Nucleated RBCs # 0.0 /100WBC 08/04/22 01:48 Sodium 139 mmol/L (136-145) 08/04/22 01:48 Potassium 4.5 mmol/L (3.5-5.1) 08/04/22 01:48 Chloride 105 mmol/L (98-107) 08/04/22 01:48 Carbon Dioxide 25 mmol/L (22-29) 08/04/22 01:48 Anion Gap 13.5 (5-19) 08/04/22 01:48 BUN 15 mg/dL (8-23) 08/04/22 01:48 Creatinine 0.6 mg/dL (0.5-0.9) 08/04/22 01:48 GFR Calculation Not Reportable 08/04/22 01:48 Glucose 95 mg/dL (65-115) 08/04/22 01:48 Calculated Osmolality 289 mOsm/kg (285-295) 08/04/22 01:48 Calcium 8.9 mg/dL (8.5-10.5) 08/04/22 01:48 Urine Color Straw (Yellow) 08/03/22 06:47 Urine Appearance Clear (CLEAR) 08/03/22 06:47 Urine pH 7 (5-7) 08/03/22 06:47 Ur Specific [place] 1.010 (1.005-1.030) 08/03/22 06:47 Urine Protein Neg (Negative) 08/03/22 06:47 Urine Glucose (UA) Norm (Normal) 08/03/22 06:47 Urine Ketones Negative (Negative) 08/03/22 06:47 Urine Blood Neg (Negative) 08/03/22 06:47 Urine Nitrate Negative (Negative) 08/03/22 06:47 Urine Bilirubin Neg (Negative) 08/03/22 06:47 Urine Urobilinogen Neg mg/dL (Negative) 08/03/22 06:47 Ur Leukocyte Esterase Negative (Negative) 08/03/22 06:47 Blood Type O Positive 08/03/22 06:55 Rho(D) Type Positive 08/03/22 06:55 Antibody Screen Negative 08/03/22 06:55 Vitals Last Vital Signs Temp 97.6 F 08/04/22 12:00 Pulse 64 08/04/22 12:00 Resp 16 08/04/22 13:46 BP 115/63 08/04/22 12:00 Pulse Ox 95 08/04/22 12:00 O2 Del Method 08/04/22 12:00 Discharge Plan Discharge Patient Disposition: Home Health Service Condition: Stable Prescriptions: New Colace 100 mg capsule 100 mg PO DAILY PRN (Reason: constipation) 10 Days Qty: 10 0RF oxycodone 5 mg tablet 5 mg PO Q6H PRN (Reason: pain) 7 Days Qty: 28 0RF Eliquis 2.5 mg tablet 2.5 mg PO BID 14 Days Qty: 28 0RF ondansetron 4 mg tablet,disintegrating 4 mg PO DAILY 5 Days Qty: 5 0RF Continued cetirizine [Zyrtec] 10 mg tablet 10 mg PO DAILY@08 melatonin 1 mg tablet 1 mg PO BEDTIME glucosamine HCl 1,500 mg tablet 1,500 mg PO BID Rx Instructions: administer with a meal ascorbate calcium (vitamin C) 500 mg tablet 1 g PO BID Lactobacillus acidophilus [Acidophilus] Capsule 10 mg PO DAILY Rx Instructions: administer with large glass of water Caltrate 600-D Plus Minerals 600 mg calcium- 800 unit-50 mg tablet 1 tab PO BEDTIME Rx Instructions: give with meal/snack cholecalciferol (vitamin D3) 125 mcg (5,000 unit) capsule 125 mcg PO BID multivitamin Tablet 1 tab PO DAILY@08 acetaminophen [Tylenol Extra Strength] 500 mg Tablet 1,000 mg PO QID PRN (Reason: Pain) atorvastatin 10 mg tablet 10 mg PO QAM Apple Cider Vinegar Gummies 1 tab PO BID Prevacid SoluTab 15 mg Tablet,Disintegrat, Delay Rel 30 mg PO QPM metoprolol tartrate 25 mg tablet See Rx Instructions .ROUTE .COMPLEX Rx Instructions: 25mg po qam and 37.5mg po qpm Black Elderberry Gummies 1 tab PO BEDTIME Restful Legs 1 tab PO BEDTIME No Action gabapentin 100 mg capsule 100 mg PO BID 14 Days Qty: 28 0RF Rx Instructions: take 1 tablet twice daily methocarbamol 500 mg tablet 500 mg PO Q8H 14 Days Qty: 42 0RF Rx Instructions: Take 1 tablet every 8 hours as needed Discharge Orders: Discharge Order (Routine); Ordered 08/04/22 Ordered By: Adi Enriquez Other Ambulatory Orders: DME: Walker (Order) Location: None Selected Ordered By: Eron Carr Referrals: [facility] [place] [facility] ([facility]) [Outside] Adi Enriquez DO [Physician] - 08/16/22 10:30 am Discharge Diet: Advance as tolerated Discharge Activity: Increase activity as tolerated Patient Instructions: Laxative, Stool Softeners (By mouth), Oxycodone, Rapid Release (By mouth), Ondansetron (By mouth), Apixaban (By mouth), Knee Replacement (GEN), Joint Replacement Stoplight Activity Restrictions/Additional Instructions: Orthopedic discharge instructions: Patient should leave dressing on in place for 48 to 72 hours. At that time may remove dressing down to the clear glued mesh on the knee. Patient may then shower and clean incision with warm soapy water. Pat dry may redress with a dry dressing as needed otherwise may leave out to air. Encourage range of motion as tolerated Weightbearing as tolerated to the right lower extremity as tolerated Ice and elevate as needed Take Eliquis as blood clot prevention medication for 2 weeks Take pain medication as prescribed Take antinausea medication as needed Colace for constipation if needed Follow-up with Dr. Enriquez in the office in 2 weeks Contact the office for any questions or concerns, or refill for medications Discharge Attestations Time Spent in Discharge Care*: greater than 30 min Quality Metrics Clinical Quality Measures [ No reported AMI, CVA or VTE this stay] Coding Level of Care Code Acute Chg FW DC note Diagnoses Osteoarthritis of right knee M17.11 Atrial fibrillation I48.0 Atrial fibrillation type: paroxysmal Hyperthyroidism E05.90 Time Spent (min) 35
== END 2022-08-04 15:40 | disposition home health service (06) ==
LOC: OR 05:58 → MEDSURG 10:45
PROVIDERS: PCP Family Medicine; Visit Provider Student in an Organized Health Care Education/Training Program
PROC: 8E0Y0CZ Robotic Assisted Procedure of Lower Extremity, Open Approach (ICD-10-PCS; CPT 27447; principal; 2022-08-03 07:00)
DX: M17.11 Unilateral primary osteoarthritis, right knee (principal); I48.0 Paroxysmal atrial fibrillation; E05.90 Thyrotoxicosis, unspecified without thyrotoxic crisis or storm; I10 Essential (primary) hypertension; K21.9 Gastro-esophageal reflux disease without esophagitis; E78.5 Hyperlipidemia, unspecified
CPT/HCPCS: 27447; 36415; 51702; 73560; 80048; 81003; 85025; 86850; 86900; 97110; 97116; 97161; 97165; 97530; C1776; J0131; J0171; J1100; J1885; J2370; J2405; J2704; J2795; J3490; J7030; J7120

== ENCOUNTER → 2022-08-16 10:24 | Outpatient (BNVA) | payer MEDICARE, OTHER, SELFPAY | PROVIDERS: PCP Family Medicine; Visit Provider Nurse Practitioner Family | DX: Z96.651 Presence of right artificial knee joint (principal); Z48.89 Encounter for other specified surgical aftercare | CPT/HCPCS: 73560; 73565; 99024 ==

== ENCOUNTER 2022-09-05 06:00 | Outpatient (RCR) | payer MEDICARE, OTHER, SELFPAY | END 2022-09-06 23:59 | disposition home or self-care (01) | LOC: SPT 06:00 | PROVIDERS: PCP Family Medicine; Visit Provider Student in an Organized Health Care Education/Training Program | DX: Z47.1 Aftercare following joint replacement surgery (principal); Z96.651 Presence of right artificial knee joint | CPT/HCPCS: 97110; 97161; G0283 ==

== ENCOUNTER 2022-09-07 06:00 | Outpatient (RCR) | payer MEDICARE, OTHER, SELFPAY | END 2022-10-07 23:59 | disposition home or self-care (01) | LOC: SPT 06:00 | PROVIDERS: PCP Family Medicine; Visit Provider Student in an Organized Health Care Education/Training Program | DX: Z47.1 Aftercare following joint replacement surgery (principal); Z96.651 Presence of right artificial knee joint | CPT/HCPCS: 97110; 97530; G0283 ==

== ENCOUNTER → 2022-09-15 10:25 | Outpatient (BNVA) | payer MEDICARE, OTHER, SELFPAY | PROVIDERS: PCP Family Medicine; Visit Provider Student in an Organized Health Care Education/Training Program | DX: Z48.89 Encounter for other specified surgical aftercare (principal); Z96.651 Presence of right artificial knee joint | CPT/HCPCS: 99024 ==

== ENCOUNTER 2022-10-08 06:00 | Outpatient (RCR) | payer MEDICARE, OTHER, SELFPAY | END 2022-10-27 23:59 | disposition home or self-care (01) | LOC: SPT 06:00 | PROVIDERS: PCP Family Medicine; Visit Provider Student in an Organized Health Care Education/Training Program | DX: Z47.89 Encounter for other orthopedic aftercare (principal) | CPT/HCPCS: 97110 ==

== ENCOUNTER → 2022-11-10 14:25 | Outpatient (BNVA) | payer MEDICARE, OTHER, SELFPAY | PROVIDERS: PCP Family Medicine; Visit Provider Student in an Organized Health Care Education/Training Program | DX: Z47.89 Encounter for other orthopedic aftercare (principal); Z96.659 Presence of unspecified artificial knee joint | CPT/HCPCS: 99213 ==

== ENCOUNTER → 2022-12-28 12:03 | Outpatient (BNVA) | payer MEDICARE, OTHER, SELFPAY | PROVIDERS: PCP Family Medicine; Visit Provider Family Medicine | DX: E05.90 Thyrotoxicosis, unspecified without thyrotoxic crisis or storm (principal) | CPT/HCPCS: 84439; 84443; 84481 ==

== ENCOUNTER → 2022-12-29 08:10 | Outpatient (BNVA) | payer MEDICARE, OTHER, SELFPAY | PROVIDERS: PCP Family Medicine; Visit Provider Family Medicine | DX: E78.5 Hyperlipidemia, unspecified (principal); I10 Essential (primary) hypertension | CPT/HCPCS: 84439; 84443; 84481 ==

== ENCOUNTER 2023-01-09 23:39 | Emergency (ER) | payer MEDICARE, OTHER, SELFPAY ==
--- NOTE | 2023-01-09 23:41 | ECG_ITS ---
[facility] Test Date: 2023-01-09 Pat Name: Wendy Toth Department: Room: Gender: Female Academic Affairs Specialist: : 1945 Requested By: Camilo Luna Order Number: [id number] Neha MD: Francesco Stone M.D. Measurements Intervals Wood Rate: 55 P: 67 LA: 189 QRS: 1 QRSD: 114 T: 4 QT: 443 QTc: 426 Interpretive Statements SINUS BRADYCARDIA MODERATE INTRAVENTRICULAR CONDUCTION DELAY [110+ ms QRS DURATION] Compared to ECG 09/09/2020 16:56:51 Intraventricular conduction delay now present Atrial fibrillation no longer present Electronically Signed On 01-10-2023 8:30:54 CDT by Francesco Stone M.D. [email or web address]
[2023-01-09 23:42] VITALS: BP 152/73; PULSE 55; RESP 16; TEMP 36.4; O2SAT 96; BMI 28.3
[2023-01-09 23:52] VITALS: BP 145/75; PULSE 56; RESP 22; O2SAT 93
--- NOTE | 2023-01-09 23:57 | W.ED.CHESTPA ---
HPI - Chest Pain General: Chief Complaint: Chest Pain Stated Complaint: Chest Pains Time Seen by Provider: 01/09/23 23:57 History of Present Illness: 77-year-old lady with history of atrial fibrillation presenting with chest pain. Onset of symptoms approximately 830 this evening while at rest. Left anterior chest heaviness and aching. Nonradiating. No other associated typical cardiac features. Has had generalized malaise but no focal infectious stuff starting today. Denies frequent history of similar. No other specific changes in health, exacerbating, or alleviating factors identified. Onset (ago): hour(s) Severity: moderate Quality: heaviness Review of Systems General: Reports: 10 or more systems reviewed and unremarkable except in HPI and below PFSH ED PFSH: Medical History Atrial fibrillation Atrial fibrillation with rapid ventricular response Chondromalacia, left knee Essential hypertension GERD (gastroesophageal reflux disease) Hiatal hernia Hyperlipidemia Hyperthyroidism Mitral regurgitation MVP (mitral valve prolapse) Pulmonary HTN Surgical History Esophageal dilatation History of D&C S/P cataract extraction S/P hernia repair Status post knee replacement Family History Father Cancer PROSTATE Mother Cancer CHF (congestive heart failure) Social History Smoking and tobacco status: never smoked Second hand smoke exposure: No Alcohol intake: never Substance/Drug Use: never Household members: spouse Marital status: Physical Exam Const: COMMON NORMALS: alert GENERAL APPEARANCE: cooperative and well developed HENMT: COMMON NORMALS: normocephalic and atraumatic HEAD & SCALP: normocephalic and atraumatic Eye: COMMON NORMALS: conjunctivae normal CONJUNCTIVA: Yes conjunctivae normal SCLERA: sclerae normal Neck/C-Spine: COMMON NORMALS: supple GENERAL: Yes trachea midline Resp: COMMON NORMALS: normal respiratory effort and clear to auscultation bilaterally EFFORT & INSPECTION: Yes able to speak in complete sentences AUSCULTATION: clear to auscultation bilaterally Cardio: COMMON NORMALS: regular rate and regular rhythm RATE: regular rate RHYTHM: regular rhythm GI: COMMON NORMALS: Soft to palpation PALPATION: Yes Soft to palpation and No Tenderness to palpation present (GI) Extremity: GENERAL: Yes normal exam except as noted and No edema Neuro: COMMON NORMALS: moves all extremities SENSORIUM/ORIENTATION: Yes alert and No Orientation impaired Psych: COMMON NORMALS: mental status grossly normal and Normal thought process present THOUGHT PROCESS: Normal thought process present Course Vital Signs: Vital signs: Vital Signs Temperature 97.6 F 01/09/23 23:42 Pulse Rate 64 01/10/23 03:33 Respiratory Rate 15 01/10/23 02:34 Blood Pressure 129/60 01/10/23 03:33 Pulse Oximetry 93 01/10/23 03:33 Oxygen Delivery Me thod Room Air 01/10/23 02:34 MDM - Chest Pain Medical Decision Making 77-year-old lady presenting with chest pain. Exam as above. Nontoxic. EKG demonstrates sinus bradycardia with nonspecific ST segment abnormalities, no STEMI. Labs with no significant hematologic or metabolic abnormalities to explain symptoms. Negative range 2-hour delta troponin. Chest x-ray with no lobar consolidation or pneumothorax. Patient treated with aspirin, morphine, Zofran. The results of ED evaluation were discussed with the patient including possible disposition options. I discussed risk stratification by heart score and estimated risk of major adverse cardiac events. The patient wishes to proceed with outpatient management. I discussed prescriptions and/or symptomatic cares (if applicable) including appropriate and responsible use, followup plan, and return precautions. The patient verbalized understanding and felt safe for discharge. Reports history of stress test not working prefers PCP however cardiology follow-up. I will order a echocardiogram. Medical Records I reviewed the patient's medical records. Lab Data I reviewed the patient's lab results. 01/09/23 00:08 01/09/23 00:08 Radiology Impressions Chest X-Ray 01/10/23 00:03 IMPRESSION: No acute findings. Laboratory Results WBC 4.1 10^3/uL (4.0-10.0) 01/09/23 00:08 RBC 3.95 10^6/uL (4.1-5.3) L 01/09/23 00:08 Hgb 12.3 g/dL (11.5-15.3) 01/09/23 00:08 Hct 38.2 % (37.0-47.0) 01/09/23 00:08 MCV 96.7 fl (81-99) 01/09/23 00:08 MCH 31.1 pg (28.0-34.0) 01/09/23 00:08 MCHC 32.2 g/dL (30.0-36.0) 01/09/23 00:08 RDW 13.5 % (12.1-15.1) 01/09/23 00:08 Plt Count 201 10^3/cmm (130-400) 01/09/23 00:08 MPV 9.0 fL (7.4-10.4) 01/09/23 00:08 Neut % (Auto) 40.5 % 01/09/23 00:08 Lymph % (Auto) 38.0 % 01/09/23 00:08 [place] % (Auto) 14.4 % 01/09/23 00:08 Eos % (Auto) 5.4 % 01/09/23 00:08 Baso % (Auto) 1.5 % 01/09/23 00:08 Neut # (Auto) 1.66 10^3/uL (1.8-7.7) L 01/09/23 00:08 Lymph # (Auto) 1.6 10^3/uL (0.8-4.8) 01/09/23 00:08 [place] # (Auto) 0.6 10^3/uL (0.2-0.9) 01/09/23 00:08 Eos # (Auto) 0.2 10^3/uL (0.0-0.8) 01/09/23 00:08 Baso # (Auto) 0.1 10^3/uL (0.0-0.1) 01/09/23 00:08 Nucleated RBC % (auto) 0 % 01/09/23 00:08 Nucleated RBCs # 0.0 /100WBC 01/09/23 00:08 Sodium 140 mmol/L (136-145) 01/09/23 00:08 Potassium 4.2 mmol/L (3.5-5.1) 01/09/23 00:08 Chloride 103 mmol/L (98-107) 01/09/23 00:08 Carbon Dioxide 25 mmol/L (22-29) 01/09/23 00:08 Anion Gap 16.2 (5-19) 01/09/23 00:08 BUN 10 mg/dL (8-23) 01/09/23 00:08 Creatinine 0.5 mg/dL (0.5-0.9) 01/09/23 00:08 GFR Calculation Not Reportable 01/09/23 00:08 Glucose 92 mg/dL (65-115) 01/09/23 00:08 Calculated Osmolality 289 mOsm/kg (285-295) 01/09/23 00:08 Calcium 9.7 mg/dL (8.5-10.5) 01/09/23 00:08 Total Bilirubin 0.3 mg/dL (0.15-1.2) 01/09/23 00:08 AST 20 U/L (0-32) 01/09/23 00:08 ALT 13 U/L (0-33) 01/09/23 00:08 Alkaline Phosphatase 91 U/L (35-105) 01/09/23 00:08 Troponin T Baseline 7 ng/L (0-10) 01/09/23 00:08 Troponin T 120 Minute 6.64 ng/L (0-10) 01/10/23 02:30 Delta Troponin T -0.36 ABS# (0-10) L 01/10/23 02:30 NT-Pro-B Natriuret Pep 293 pg/mL (0-450) 01/09/23 00:08 Total Protein 6.6 g/dL (6.6-8.7) 01/09/23 00:08 Albumin 4.6 g/dL (3.5-5.2) 01/09/23 00:08 Globulin 2.0 g/dL (1.3-4.6) 01/09/23 00:08 Lipase 29 U/L (13-60) 01/09/23 00:08 Discharge Plan Discharge Patient Disposition: Home Clinical Impression: Chest pain Condition: Stable Prescriptions: No Action cetirizine [Zyrtec] 10 mg tablet 10 mg PO DAILY@08 melatonin 1 mg tablet 1 mg PO BEDTIME glucosamine HCl 1,500 mg tablet 1,500 mg PO BID Rx Instructions: administer with a meal ascorbate calcium (vitamin C) 500 mg tablet 1 g PO BID Lactobacillus acidophilus [Acidophilus] Capsule 10 mg PO DAILY Rx Instructions: administer with large glass of water Caltrate 600-D Plus Minerals 600 mg calcium- 800 unit-50 mg tablet 1 tab PO BEDTIME Rx Instructions: give with meal/snack cholecalciferol (vitamin D3) 125 mcg (5,000 unit) capsule 125 mcg PO BID gabapentin 100 mg capsule 100 mg PO BID 14 Days Qty: 28 0RF Rx Instructions: take 1 tablet twice daily acetaminophen-codeine 300-30 mg tablet 1 tab PO Q6H 14 Days Qty: 56 0RF methocarbamol 500 mg tablet 500 mg PO Q8H 14 Days Qty: 42 0RF Rx Instructions: Take 1 tablet every 8 hours as needed multivitamin Tablet 1 tab PO DAILY@08 acetaminophen [Tylenol Extra Strength] 500 mg Tablet 1,000 mg PO QID PRN (Reason: Pain) atorvastatin 10 mg tablet 10 mg PO QAM Apple Cider Vinegar Gummies 1 tab PO BID Prevacid SoluTab 15 mg Tablet,Disintegrat, Delay Rel 30 mg PO QPM metoprolol tartrate 25 mg tablet See Rx Instructions .ROUTE .COMPLEX Rx Instructions: 25mg po qam and 37.5mg po qpm Black Elderberry Gummies 1 tab PO BEDTIME Restful Legs 1 tab PO BEDTIME Discharge Orders: Discharge ED (Routine); Ordered 01/10/23 Ordered By: Camilo Luna Referrals: Javy Fields MD [Primary Care Provider] - Discharge Diet: Usual diet Discharge Activity: Resume usual activity Patient Instructions: Chest Pain (ED) Activity Restrictions/Additional Instructions: Thank you for visiting the emergency department. You were seen and evaluated for chest pain. The exact cause of your symptoms is unclear. As discussed you are not low risk for adverse cardiac events however are electing to proceed with outpatient management. Please follow-up with your primary care provider. I will order an outpatient echocardiogram. Return for anything that you are concerned about and feel needs emergency department evaluation. Coding Level of Care Code ED Bilingual Medical Receptionist for Timbo Costello
--- NOTE | 2023-01-10 00:03 | XRR_ITS ---
PROCEDURE INFORMATION: Exam: XR Chest Exam date and time: 01/10/2023 12:29 AM Age: 77 years old Clinical indication: Pain; Chest pressure; Additional info: Cp TECHNIQUE: Imaging protocol: Radiologic exam of the chest. Views: 1 view. COMPARISON: CR XR chest 2V* [id number] 02/18/2022 11:01 AM FINDINGS: Lungs: Unremarkable. No consolidation. Pleural spaces: Unremarkable. No pleural effusion. No pneumothorax. Heart/Mediastinum: Mild cardiomegaly. Bones/joints: Unremarkable. XR/XR chest 1V portable [id number] IMPRESSION: No acute findings.
[2023-01-10 00:11] VITALS: RESP 18; O2SAT 96
[2023-01-10] MEDS: morphine 4 mg/mL SDV 1 mL IVP (00:11)
[2023-01-10] MEDS: ondansetron 2 mg/ML SDV 2 mL 4 MG IVP (00:13)
[2023-01-10 00:21] LABS: Basophils # 0.1 10^3/uL (0.0-0.1); Basophils % 1.5 %; Eosinophils # 0.2 10^3/uL (0.0-0.8); Eosinophils % 5.4 %; Hematocrit 38.2 % (37.0-47.0); Hemoglobin 12.3 g/dL (11.5-15.3); Lymphocytes # 1.6 10^3/uL (0.8-4.8); Mean Corpuscular HGB Conc 32.2 g/dL (30.0-36.0); Mean Corpuscular Hemoglobin 31.1 pg (28.0-34.0); Mean Corpuscular Volume 96.7 fl (81-99); Monocytes # 0.6 10^3/uL (0.2-0.9); Monocytes % 14.4 %; Neutrophils # 1.66 10^3/uL (1.8-7.7); Neutrophils % 40.5 %; Nucleated Red Blood Cells % 0 %; Platelet Count 201 10^3/cmm (130-400); Red Blood Count 3.95 10^6/uL (4.1-5.3); Red Cell Distribution Width 13.5 % (12.1-15.1); White Blood Count 4.1 10^3/uL (4.0-10.0)
[2023-01-10 00:34] LABS: Albumin Level 4.6 g/dL (3.5-5.2); Aspartate Amino Transferase 20 U/L (0-32); Blood Urea Nitrogen 10 mg/dL (8-23); Lipase 29 U/L (13-60); Total Bilirubin 0.3 mg/dL (0.15-1.2); Total Protein 6.6 g/dL (6.6-8.7)
[2023-01-10 01:19] VITALS: BP 120/64; PULSE 57; RESP 16; O2SAT 97
[2023-01-10 01:30] LABS: Troponin(5th) Baseline 7 ng/L (0-10)
--- NOTE | 2023-01-10 01:34 | ECG_ITS ---
[facility] Test Date: 2023-01-10 Pat Name: Wendy Toth Department: Room: Gender: Female Lubrication Technician: : 1945 Requested By: Jose Antonio Arias Order Number: [id number] Neha MD: Francesco Stone M.D. Measurements Intervals [place] Rate: 52 P: 56 [place]: 213 QRS: 5 QRSD: 110 T: 21 QT: 475 QTc: 444 Interpretive Statements SINUS BRADYCARDIA WITH FIRST DEGREE AV BLOCK Compared to ECG 01/09/2023 23:47:59 First degree AV block now present Intraventricular conduction delay no longer present Electronically Signed On 01-10-2023 8:30:46 CDT by Francesco Stone M.D. [id number]
[2023-01-10 02:34] VITALS: BP 136/60; PULSE 50; RESP 15; O2SAT 95
[2023-01-10 02:37] LABS: NT Pro B Type Natriuretic Pept 293 pg/mL (0-450)
[2023-01-10 02:51] LABS: Troponin 5 2HR 6.64 ng/L (0-10)
[2023-01-10 02:52] LABS: Troponin 5 2HR Delta -0.36 ABS# (0-10)
[2023-01-10 02:54] LABS: Alanine Aminotransferase 13 U/L (0-33); Alkaline Phosphatase 91 U/L (35-105)
[2023-01-10 02:56] LABS: Chloride 103 mmol/L (98-107); Potassium 4.2 mmol/L (3.5-5.1); Sodium 140 mmol/L (136-145)
[2023-01-10 02:57] LABS: Anion Gap 16.2 (5-19); Calcium 9.7 mg/dL (8.5-10.5); Carbon Dioxide 25 mmol/L (22-29); Glucose 92 mg/dL (65-115); Osmolality Calculated 289 mOsm/kg (285-295)
[2023-01-10 03:33] VITALS: BP 129/60; PULSE 64; O2SAT 93
--- NOTE | 2023-01-13 08:26 | DCPLANNER ---
Addendum entered by Uyen Silva 02/16/23 12:18: Patient did attend scheduled echo Addendum entered by Uyen Silva 01/25/23 12:35: Patient has an out patient echo scheduled for January at 12:15. Original Note: manager [employer] marketing had message to schedule an outpatient EGD for patient. manager medic[employer] marketing faxed signed order to centralized scheduling, who will call patient with appointment information.
== END 2023-01-10 03:26 | disposition home or self-care (01) ==
PROVIDERS: Nurse Practitioner Family; Emergency Provider Emergency Medicine; PCP Family Medicine
DX: R07.89 Other chest pain (principal); R00.1 Bradycardia, unspecified
CPT/HCPCS: 36415; 71045; 80053; 83690; 83880; 84484; 85025; 93005; 96374; 96375; 99285; J2270; J2405

== ENCOUNTER 2023-01-26 11:39 | Outpatient (CLI) | payer MEDICARE, OTHER, SELFPAY ==
--- NOTE | 2023-01-26 12:15 | USCV_ITS ---
Wendy Toth Age: 77 Gender: F : 1945 Exam Date: 01/26/2023 12:04 Ordering Phys: Camilo Luna MD Technologist: Dora Silverio Exam Location: [facility] [place] Indication: CP BP: 137 / 77 HR: 501 Rhythm: Sinus Technical Quality: Good MEASUREMENTS (Male / Female) Normal Values 2D ECHO LV Diastolic Diameter PLAX 5.2 cm 4.2 - 5.9 / 3.9 - 5.3 cm LV Systolic Diameter PLAX 3.0 cm IVS Diastolic Thickness 1.1 cm 0.6 - 1.0 / 0.6 - 0.9 cm IVS Systolic Thickness 1.4 cm LVPW Diastolic Thickness 1.2 cm 0.6 - 1.0 / 0.6 - 0.9 cm LVPW Systolic Thickness 2.2 cm LVOT Diameter 2.0 cm LV Ejection Fraction 2D Teich 72.6 % LV Ejection Fraction MOD 2C 72.7 % LV Ejection Fraction 2C AL 72.7 % LA Diameter 4.2 cm LA Width 5.3 cm LA Height 6.5 cm RA Width 3.3 cm RA Height 4.5 cm Aorta at Sinotubular Diameter 2.5 cm IVC Diameter 1.7 cm M-MODE Aortic Annulus Diameter 2.6 cm LA Ao Ratio MM 1.6 MV E Point Septal Separation 0.6 cm DOPPLER AV Peak Velocity 109.0 cm/s LVOT Peak Velocity 80.0 cm/s AV Area Cont Eq vti 2.3 cm squared AV Area Cont Eq pk 2.3 cm squared MV Peak Velocity 145.0 cm/s MV Area PHT 2.0 cm squared Mitral E to A Ratio 1.3 MV E' Velocity 58.5 cm/s Mitral E to MV E' Ratio 15.1 Mitral E to LV E' Lateral Ratio 13.6 Mitral E to LV E' Septal Ratio 17.3 TR Peak Velocity 228.8 cm/s TR Peak Gradient 20.9 mmHg Right Atrial Pressure 5.0 mmHg Pulmonary Artery Systolic Pressu 25.9 mmHg PV Peak Velocity 68.0 cm/s RV Acceleration Time 0.2 s RV Ejection Time 0.3 s RV AcT/ET 0.5 FINDINGS Left Ventricle Normal left ventricular size, systolic function and wall thickness, with no regional wall motion abnormalities. Grade I/IV diastolic dysfunction (abnormal relaxation filling pattern), normal to mildly elevated filling pressures. Left ventricular ejection fraction is estimated at 65 %. Right Ventricle Normal right ventricular size and systolic function. Normal right ventricular systolic pressure. Right Atrium The right atrium is normal in size. Left Atrium Moderately increased left atrial size. Mitral Valve The mitral valve is thickened, myxomatous and prolapses very slightly. The posterior leaflet is heavily calcified. There is moderate to severe mitral regurgitation. Aortic Valve Structurally normal aortic valve without significant sclerosis or stenosis. There is no aortic regurgitation. Tricuspid Valve Structurally normal tricuspid valve. Trace tricuspid valve regurgitation. Pulmonic Valve Pulmonic valve not well visualized. Pericardium Normal pericardium without effusion. Aorta Normal ascending aorta dimension. IVC The inferior vena cava appears normal. CONCLUSIONS Normal left ventricular size, systolic function and wall thickness, with no regional wall motion abnormalities. Grade I/IV diastolic dysfunction (abnormal relaxation filling pattern), normal to mildly elevated filling pressures. Left ventricular ejection fraction is estimated at 65 %. Moderately increased left atrial size. The mitral valve is thickened, myxomatous and prolapses very slightly. The posterior leaflet is heavily calcified. There is moderate to severe mitral regurgitation. This study is unchanged from the yearly echoes done since 2013. Dr. Arturo Lea MD (Electronically Signed) Final Date: 26 January 2023 15:58 S
== END 2023-01-26 11:40 | disposition home or self-care (01) ==
LOC: RAD 11:41
PROVIDERS: PCP Family Medicine; Visit Provider Emergency Medicine
DX: R07.9 Chest pain, unspecified (principal); I34.1 Nonrheumatic mitral (valve) prolapse; I34.81 Nonrheumatic mitral (valve) annulus calcification; I34.0 Nonrheumatic mitral (valve) insufficiency
CPT/HCPCS: 93306

== ENCOUNTER → 2023-01-27 10:52 | Outpatient (BNVA) | payer MEDICARE, OTHER, SELFPAY | PROVIDERS: PCP Family Medicine; Visit Provider Student in an Organized Health Care Education/Training Program | DX: M17.12 Unilateral primary osteoarthritis, left knee (principal); M94.262 Chondromalacia, left knee; Z71.89 Other specified counseling | CPT/HCPCS: 20610; 99213; J7318 ==

== ENCOUNTER → 2023-02-02 13:14 | Outpatient (BNVA) | payer MEDICARE, OTHER, SELFPAY | PROVIDERS: PCP Family Medicine; Referring Provider Family Medicine; Visit Provider Student in an Organized Health Care Education/Training Program | DX: M18.12 Unilateral primary osteoarthritis of first carpometacarpal joint, left hand | CPT/HCPCS: 73130; 99214 ==

== ENCOUNTER → 2023-06-29 16:02 | Outpatient (BNVA) | payer MEDICARE, OTHER, SELFPAY | PROVIDERS: PCP Family Medicine; Visit Provider Family Medicine | DX: I10 Essential (primary) hypertension (principal); M19.90 Unspecified osteoarthritis, unspecified site; R53.83 Other fatigue; E78.5 Hyperlipidemia, unspecified | CPT/HCPCS: 80053; 82607; 84443; 84550; 85025; 85651; 86140; 86160; 86162; 86235; 86255; 86376; 86431 ==

== ENCOUNTER 2023-08-29 12:50 | Outpatient (CLI) | payer MEDICARE, OTHER, SELFPAY ==
--- NOTE | 2023-08-29 13:00 | XRR_ITS ---
PROCEDURE INFORMATION: Exam: XR Chest Exam date and time: 08/29/2023 1:18 PM Age: 78 years old Clinical indication: Dyspnea; Patient HX: Gaining water weight and heaving for 1 month TECHNIQUE: Imaging protocol: Radiologic exam of the chest. Views: 2 views. COMPARISON: CR XR chest 1V portable [id number] 01/10/2023 12:29 AM FINDINGS: Lungs: Interval appearance of pulmonary vascular congestion, Herb lines, small effusions and further increase in cardiac silhouette . Pleural spaces: No pleural effusion or pneumothorax. Heart/Mediastinum: Unremarkable. Bones/joints: Thoracolumbar spine curvature with degenerative change. XR/XR chest 2V* [id number] IMPRESSION: Interval appearance of findings compatible with congestive failure and/or fluid overload.
== END 2023-08-29 12:51 | disposition home or self-care (01) ==
PROVIDERS: PCP Family Medicine; Visit Provider Family Medicine
DX: I27.20 Pulmonary hypertension, unspecified (principal); I34.0 Nonrheumatic mitral (valve) insufficiency; R06.00 Dyspnea, unspecified; J90 Pleural effusion, not elsewhere classified; R91.8 Other nonspecific abnormal finding of lung field; I11.0 Hypertensive heart disease with heart failure; I50.9 Heart failure, unspecified
CPT/HCPCS: 71046; 80053; 83880; 85025; 85379; 86140

== ENCOUNTER 2023-09-01 13:17 | Outpatient (CLI) | payer MEDICARE, OTHER, SELFPAY ==
--- NOTE | 2023-09-01 13:30 | USCV_ITS ---
Wendy Toth Age: 78 Gender: F : 1945 Exam Date: 09/01/2023 13:43 Ordering Phys: Javy Fields MD Technologist: BETTY Exam Location: [facility] [place] Indication: LE Swelling HISTORY: Lower extremity swelling. Lower extremity edema. PROCEDURES: Venous duplex imaging was performed in only the left lower extremity. The following venous structures were evaluated: common femoral vein, profunda vein, proximal portion of the greater saphenous vein, superficial femoral vein, and the popliteal vein. In addition, the posterior tibial and peroneal trunk were evaluated. Serial compression, augmentation maneuvers, and spectral Doppler flow evaluation were performed. FINDINGS: No evidence of DVT seen in any vessel visualized at this time. CONCLUSIONS No evidence of left lower extremity DVT. Bharath Plasencia MD (Electronically Signed) Final Date: 01 September 2023 14:15 S
== END 2023-09-01 13:18 | disposition home or self-care (01) ==
LOC: RAD 13:18
PROVIDERS: PCP Family Medicine; Visit Provider Family Medicine
DX: M79.89 Other specified soft tissue disorders (principal)
CPT/HCPCS: 93971

== ENCOUNTER → 2023-09-12 09:52 | Outpatient (BNVA) | payer MEDICARE, OTHER, SELFPAY | PROVIDERS: PCP Family Medicine; Visit Provider Student in an Organized Health Care Education/Training Program | DX: M94.262 Chondromalacia, left knee; Z96.651 Presence of right artificial knee joint | CPT/HCPCS: 73560; 73565; 99024; 99213 ==

== ENCOUNTER → 2023-09-14 13:02 | Outpatient (BNVA) | payer MEDICARE, OTHER, SELFPAY | PROVIDERS: PCP Family Medicine; Visit Provider Family Medicine | DX: I10 Essential (primary) hypertension (principal); I50.9 Heart failure, unspecified | CPT/HCPCS: 80048; 83880; 85025 ==

== ENCOUNTER → 2023-10-10 14:03 | Outpatient (BNVA) | payer MEDICARE, OTHER, SELFPAY | PROVIDERS: PCP Family Medicine; Visit Provider Family Medicine | DX: I10 Essential (primary) hypertension (principal); I50.9 Heart failure, unspecified; R53.83 Other fatigue; E11.9 Type 2 diabetes mellitus without complications | CPT/HCPCS: 80053; 82607; 83540; 83880; 84443; 85025; 85651; 86140 ==

== ENCOUNTER → 2023-12-29 10:06 | Outpatient (BNVA) | payer MEDICARE, OTHER, SELFPAY | PROVIDERS: PCP Family Medicine; Visit Provider Internal Medicine Cardiovascular Disease | DX: E78.5 Hyperlipidemia, unspecified (principal); I34.1 Nonrheumatic mitral (valve) prolapse; I34.0 Nonrheumatic mitral (valve) insufficiency; I11.0 Hypertensive heart disease with heart failure; I50.9 Heart failure, unspecified; I83.92 Asymptomatic varicose veins of left lower extremity; I27.20 Pulmonary hypertension, unspecified | CPT/HCPCS: 99214 ==

== ENCOUNTER → 2024-01-02 10:37 | Outpatient (BNVA) | payer MEDICARE, OTHER, SELFPAY | PROVIDERS: PCP Family Medicine; Visit Provider Physician Assistant | DX: M17.12 Unilateral primary osteoarthritis, left knee (principal); M94.262 Chondromalacia, left knee | CPT/HCPCS: 20610; 99213; J7318 ==

== ENCOUNTER → 2024-01-25 13:31 | Outpatient (BNVA) | payer MEDICARE, OTHER, SELFPAY | PROVIDERS: PCP Family Medicine; Visit Provider Physician Assistant | DX: M89.8X2 Other specified disorders of bone, upper arm (principal); M75.42 Impingement syndrome of left shoulder | CPT/HCPCS: 20610; 73060; 99213; J3301 ==

== ENCOUNTER 2024-05-10 14:49 | Outpatient (CLI) | payer MEDICARE, OTHER, SELFPAY ==
--- NOTE | 2024-05-10 15:15 | CTR_ITS ---
PROCEDURE INFORMATION: Exam: CT Abdomen And Pelvis With Contrast Exam date and time: 05/10/2024 3:28 PM Age: 78 years old Clinical indication: Abdominal pain; Prior surgery; Surgery date: 6+ months; Surgery type: Umbilical hernia; Patient HX: Abdominal bloating, left flank pain, HX of left renal artery bruit; Additional info: Abd pain. Left renal artery bruit TECHNIQUE: Imaging protocol: Computed tomography of the abdomen and pelvis with contrast. Radiation optimization: All CT scans at this facility use at least one of these dose optimization techniques: automated exposure control; mA and/or kV adjustment per patient size (includes targeted exams where dose is matched to clinical indication); or iterative reconstruction. Contrast material: OMNI 350; Contrast volume: 100 ml; Contrast route: INTRAVENOUS (IV); COMPARISON: MR lumbar spine wo con* [id number] 12/19/2017 9:28 AM RADIATION DOSE METRICS: Total DLP (mGy-cm): 424.36 FINDINGS: Heart: There is severe cardiomegaly. Calcification of the mitral valve annulus noted. Diaphragm: There is a small hiatal hernia. Liver: Normal. No mass. Gallbladder and biliary ducts: Gallstones are noted. Pancreas: Normal. No ductal dilation. Spleen: Normal. No splenomegaly. Adrenal glands: Normal. No mass. Kidneys and ureters: No urolithiasis. Stomach and bowel: Moderate diverticulosis is noted. No evidence of diverticulitis. No obstruction. Appendix: No evidence of appendicitis. Intraperitoneal space: Unremarkable. No free air. No significant fluid collection. Vasculature: No aneurysm. Renal arteries grossly normal. Lymph nodes: Unremarkable. No enlarged lymph nodes. Urinary bladder: Unremarkable as visualized. Reproductive: Uterus mildly enlarged for age. Bones/joints: Unremarkable. No acute fracture. Soft tissues: No ventral hernia. CT/CT abdomen pelvis w con* [id number] IMPRESSION: 1. No acute findings. 2. Gallstones. 3. Diverticulosis without evidence diverticulitis.
[2024-05-10] MEDS: iohexol 350 mg/mL 500 mL Btl (per mL) IV (15:42)
[2024-05-10] MEDS: iohexol 350 mg/mL 500 mL Btl (per mL) PO (15:43)
== END 2024-05-10 14:50 | disposition home or self-care (01) ==
LOC: RAD 14:51
PROVIDERS: PCP Family Medicine; Visit Provider Family Medicine
DX: K57.90 Diverticulosis of intestine, part unspecified, without perforation or abscess without bleeding (principal); K80.20 Calculus of gallbladder without cholecystitis without obstruction; I51.7 Cardiomegaly; I34.81 Nonrheumatic mitral (valve) annulus calcification; K44.9 Diaphragmatic hernia without obstruction or gangrene; Z98.890 Other specified postprocedural states
CPT/HCPCS: 74177

== ENCOUNTER 2024-06-10 08:27 | Outpatient (CLI) | payer MEDICARE, OTHER, SELFPAY ==
--- NOTE | 2024-06-10 09:15 | USCV_ITS ---
Wendy Toth Age: 78 Gender: F : 1945 Exam Date: 06/10/2024 09:09 Ordering Phys: Javy Fields MD Technologist: CT Exam Location: [facility] [place] Indication: chf BP: 130 / 80 HR: 74 Rhythm: Sinus Technical Quality: Adequate MEASUREMENTS (Male / Female) Normal Values 2D ECHO LVOT Diameter 2.0 cm LV Ejection Fraction MOD 4C 72.5 % LV Ejection Fraction MOD 2C 41.8 % LV Ejection Fraction 2C AL 41.3 % LA Diameter 6.3 cm RA Systolic Volume 4C AL 73.5 ml RA Systolic Volume 4C MOD 75.4 ml LA Sys Volume AL 138.4 cm cubed LA Sys Volume Index AL 72.1 cm cubed/m squared Aorta at Sinotubular Diameter 2.2 cm IVC Diameter 2.2 cm M-MODE LA Ao Ratio MM 2.3 AV Cusp Separation MM 1.7 cm DOPPLER AV Peak Velocity 110.0 cm/s LVOT Peak Velocity 67.0 cm/s AV Area Cont Eq vti 2.1 cm squared AV Area Cont Eq pk 1.9 cm squared MV Peak Velocity 353.7 cm/s MV Area PHT 3.7 cm squared Mitral E to A Ratio 2.2 TV Peak Velocity 246.0 cm/s TR Peak Velocity 251.0 cm/s TR Peak Gradient 25.2 mmHg TR Mean Velocity 166.0 cm/s TR Mean Gradient 12.7 mmHg TR Velocity Time Integral 76.1 cm TV Peak E Velocity 93.0 cm/s PV Peak Velocity 69.0 cm/s FINDINGS Left Ventricle Mildly reduced LV systolic function with EF of 45-50%. Mild global hypokinesis seen. Right Ventricle Normal in size and function. Right Atrium Dilated Left Atrium Dilated Mitral Valve Moderate mitral annular calcification. Moderate mitral regurgitation. Aortic Valve Structurally normal aortic valve. No significant stenosis. Mild aortic regurgitation. Tricuspid Valve Mild tricuspid regurgitation. Pulmonary artery systolic pressure is normal. Pulmonic Valve Not well visualized Pericardium Normal Aorta Normal in size IVC Grossly dilated CONCLUSIONS Mildly reduced LV systolic function with EF of 45-50% Biatrial dilation Mild to moderate mitral regurgitation Mild aortic regurgitation Mild tricuspid regurgitation Compared to prior echocardiogram from 01/2023, LV systolic function appears to be mildly reduced. Francesco Stone MD (Electronically Signed) Final Date: 14 June 2024 10:01 S
== END 2024-06-10 08:28 | disposition home or self-care (01) ==
LOC: RAD 08:28
PROVIDERS: PCP Family Medicine; Visit Provider Family Medicine
DX: I34.1 Nonrheumatic mitral (valve) prolapse (principal); I34.0 Nonrheumatic mitral (valve) insufficiency; I50.9 Heart failure, unspecified; I51.7 Cardiomegaly
CPT/HCPCS: 93306

== ENCOUNTER → 2024-07-23 13:35 | Outpatient (BNVA) | payer MEDICARE, OTHER, SELFPAY | PROVIDERS: PCP Family Medicine; Visit Provider Family Medicine | DX: E78.5 Hyperlipidemia, unspecified (principal); I50.9 Heart failure, unspecified; I10 Essential (primary) hypertension | CPT/HCPCS: 80053; 80061; 84443; 85025 ==

== ENCOUNTER → 2024-07-24 12:48 | Outpatient (BNVA) | payer MEDICARE, OTHER, SELFPAY | PROVIDERS: PCP Family Medicine; Visit Provider Internal Medicine Cardiovascular Disease | DX: I83.92 Asymptomatic varicose veins of left lower extremity (principal); I34.0 Nonrheumatic mitral (valve) insufficiency | CPT/HCPCS: 99213 ==

== ENCOUNTER 2024-08-07 15:14 | Outpatient (CLI) | payer MEDICARE, OTHER, SELFPAY ==
--- NOTE | 2024-08-07 15:30 | XR_ITS ---
WS: [id number] SCREENING DEXA SCAN [employer] CLINICAL INFORMATION: screening COMPARISON: None. FINDINGS: The L1-L4 bone mineral density measures 1.184 g/cm2. This corresponds to a T score score of 0.0 and Z score of 1.6. Left femoral neck bone mineral density measures 0.794 g/cm2. This corresponds to a T score of -1.7 an d Z score of 0.1. Right femoral neck bone mineral density measures 0.708 g/cm2. This corresponds to a T score -2.4of an d Z score of -0.6. Mean femoral neck bone mineral density measures 0.751 g/cm2. This corresponds to a T score of -2.0 an d Z score of -0.3. XR/XR DEXA axial skeleton* [id number] IMPRESSION: Normal bone mineralization lumbar spine. Osteopenia femoral necks. Patient's FRAX calculated 10 year probability for major osteoporotic fracture i s 60.2% and osteoporotic hip fracture is 49.8%. Bone mineral density lumbar spine increased 3.8% Bone mineral density femoral necks decreased -3.6%
== END 2024-08-07 15:15 | disposition home or self-care (01) ==
LOC: RAD 15:15
PROVIDERS: PCP Family Medicine; Visit Provider Family Medicine
DX: Z00.00 Encounter for general adult medical examination without abnormal findings (principal); Z13.820 Encounter for screening for osteoporosis; M85.852 Other specified disorders of bone density and structure, left thigh; M85.851 Other specified disorders of bone density and structure, right thigh
CPT/HCPCS: 77080

== ENCOUNTER → 2024-09-10 08:38 | Outpatient (BNVA) | payer MEDICARE, OTHER, SELFPAY | PROVIDERS: PCP Family Medicine; Visit Provider Student in an Organized Health Care Education/Training Program | DX: M75.42 Impingement syndrome of left shoulder (principal); Z96.652 Presence of left artificial knee joint | CPT/HCPCS: 20610; 73560; 73565; 99213; J3301 ==

== ENCOUNTER → 2025-02-26 17:14 | Outpatient (BNVA) | payer MEDICARE, OTHER, SELFPAY | PROVIDERS: PCP Family Medicine; Visit Provider Internal Medicine Cardiovascular Disease | DX: R07.9 Chest pain, unspecified (principal); I48.91 Unspecified atrial fibrillation | CPT/HCPCS: 93005 ==

== ENCOUNTER → 2025-03-06 15:34 | Outpatient (BNVA) | payer MEDICARE, OTHER, SELFPAY | PROVIDERS: PCP Family Medicine; Visit Provider Family Medicine | DX: R10.9 Unspecified abdominal pain (principal); R53.83 Other fatigue | CPT/HCPCS: 81000; 87086 ==

== ENCOUNTER 2025-03-20 07:16 | Day surgery (SDC) | payer MEDICARE, OTHER, SELFPAY ==
[2025-03-20 07:42] VITALS: BP 133/83; PULSE 64; RESP 18; TEMP 36.5; O2SAT 97; BMI 29.2
--- NOTE | 2025-03-20 08:01 | USCV_ITS ---
Wendy Toth Age: 79 Gender: F : 1945 Exam Date: 03/20/2025 08:39 Ordering Phys: Yaima Licea MD ([email or web address]) Technologist: Exam Location: [facility] [place] Indication: mr BP: / HR: Rhythm: Sinus Technical Quality: MEASUREMENTS (Male / Female) Normal Values Medications Patient given IV sedation by anesthesia service, for details please refer to the anesthesia report. Complications None. Proc. Components The patient was brought to the [facility] examination room in a fasting state after obtaining an informed consent. The [facility] probe was passed into the posterior pharynx , mid-esophagus, distal esophagus, and gastric fundus. FLOR[facility]INO was performed at multiple levels. The patient tolerated the procedure well and there were no complications. FINDINGS Left Ventricle Mildly increased left ventricular cavity size. Moderately decreased left ventricular systolic function. Left ventricular ejection fraction is estimated at 35-40 %. Global left ventricular hypokinesis. Right Ventricle The right ventricle is normal in size and function. Right Atrium The right atrium is normal in size. Left Atrium The left atrium is normal in size. LA Appendage Not well visualized IA Septum Normal interatrial septum. No [id number] shunt seen at the atrial level with contrast. No [id number]-ax-[id number] shunt seen at the atrial level. Mitral Valve Moderately thickened mitral valve. Mild mitral annular calcification. No mitral valve stenosis. Moderate mitral valve prolapse. Moderate mitral valve regurgitation. Aortic Valve Moderate aortic valve calcification. No aortic valve stenosis. Trace aortic valve regurgitation. Tricuspid Valve Structurally normal tricuspid valve without significant stenosis or regurgitation. Pulmonary artery systolic pressure is normal. Pulmonic Valve Structurally normal pulmonic valve without significant stenosis. There is no pulmonic regurgitation. Pericardium Normal pericardium without effusion. Aorta Normal ascending aorta dimension. CONCLUSIONS Mildly increased left ventricular cavity size. Moderately decreased left ventricular systolic function. Left ventricular ejection fraction is estimated at 35-40 %. Global left ventricular hypokinesis. Normal interatrial septum. No [id number] shunt seen at the atrial level with contrast. No [id number]-wv-nwksn shunt seen at the atrial level. Moderately thickened mitral valve. Mild mitral annular calcification. No mitral valve stenosis. Moderate mitral valve prolapse. Moderate mitral valve regurgitation. Moderate aortic valve calcification. No aortic valve stenosis. Trace aortic valve regurgitation. There is no pericardial effusion. Yaima Licea MD (Electronically Signed) Final Date: 03 April 2025 10:38 S
--- NOTE | 2025-03-20 08:04 | ANES.PREANE2 ---
Pre-Anesthetic Assessment Height/Weight: Height 1.63 m Weight 77.111 kg Temp Pulse Resp BP Pulse Ox O2 Del Method 97.7 F 64 18 133/83 97 Room Air 03/20/25 07:42 03/20/25 07:42 03/20/25 07:42 03/20/25 07:42 03/20/25 07:42 03/20/25 07:42 Operation Date: 03/20/25 08:30 Proposed Procedures p FLORENTINO - Echocardiogram Transesophageal(Not Applicable) - Yaima Licea MD Last intake: Intake Last Liquid Date 03/19/25 Last Liquid Time 22:00 Last Solid Date 03/19/25 Last Solid Time 18:00 Social No alcohol and No tobacco Exam alert, oriented x 3, clear to auscultation bilaterally and regular rate & rhythm (systolic murmur) Airway Submandibular: within normal limits Cervical ROM: within normal limits Mallampati: Class II Pulmonary Othopnea and Shortness of Breath CV/HEM Coronary Artery Disease, Congestive Heart Failure, Hypertension and Murmur (MR) Metabolic Hyperlipidemia Musc/skel Osteoarthritis/DJD Anesthetic Plan ASA status: 4 Anesthesia: MAC Medications/Allergies Home Medications ?Medication ?Instructions ?Recorded ?Confirmed ?Last Taken ?Type cetirizine 10 mg tablet (Zyrtec) 10 mg PO DAILY@08 01/01/20 03/17/25 03/19/25 History acetaminophen 500 mg tablet 1,000 mg PO QID PRN Pain 09/09/20 03/17/25 03/19/25 History (Tylenol Extra Strength) Lactobacillus acidophilus 10 mg PO DAILY 09/22/20 03/17/25 03/19/25 History (Acidophilus capsule) ascorbate calcium (vitamin C) 500 1 g PO BID 09/22/20 03/17/25 03/19/25 History mg tablet cholecalciferol (vitamin D3) 125 125 mcg PO BID 09/22/20 03/17/25 03/19/25 History mcg (5,000 unit) capsule glucosamine HCl 1,500 mg tablet 1,500 mg PO BID 09/22/20 03/17/25 03/19/25 History Apple Cider Vinegar Gummies 1 tab PO BID 08/04/22 03/17/25 03/19/25 History Black Elderberry Gummies 1 tab PO BID 08/04/22 03/17/25 03/19/25 History lansoprazole 15 mg delayed 30 mg PO DAILY 08/04/22 03/17/25 03/19/25 History release,disintegrating tablet (Prevacid SoluTab) aspirin 81 mg tablet,delayed 81 mg PO DAILY 03/17/25 03/17/25 03/19/25 History release atenolol 50 mg tablet 25 mg PO DAILY 03/17/25 03/20/25 03/20/25 History atorvastatin 10 mg tablet 10 mg PO DAILY 03/17/25 03/17/25 03/19/25 History furosemide 40 mg tablet 20 mg PO DAILY 03/17/25 03/17/25 03/19/25 History magnesium 500 mg tablet 500 mg PO BEDTIME 03/17/25 03/17/25 03/19/25 History multivitamin [id number] 1 tab PO DAILY 03/17/25 03/17/25 03/19/25 History fumarate 18 mg-vitamin K 25 mcg tablet potassium chloride 20 mEq 20 meq PO DAILY 03/17/25 03/17/25 03/19/25 History tablet,extended release turmeric 400 mg capsule 500 mg PO .NOON 03/17/25 03/17/25 03/19/25 History Allergies Allergy/AdvReac Type Severity Reaction Status Date / Time amoxicillin Allergy Unknown Unknown Verified 02/26/25 16:40 azithromycin (From Zithromax) Allergy Unknown Unknown Verified 02/26/25 16:40 erythromycin base Allergy Unknown Unknown Verified 02/26/25 16:40 metoprolol AdvReac Intermediate arthritis Verified 02/26/25 16:40 Current Medications Generic Name Dose Route Start Last Admin Trade Name Freq PRN Reason Stop Dose Admin Sodium Chloride 1,000 mls @ 30 mls/hr 03/20/25 07:30 03/20/25 07:57 Sodium Chloride 0.9% IV 03/21/25 07:29 30 mls/hr .Q24H NAIF Administration PFSH Anesthesia Medical History (Updated 03/06/25 @ 15:36 by Javy Fields MD) Congestive heart failure Chondromalacia, left knee Atrial fibrillation Hyperthyroidism Hiatal hernia GERD (gastroesophageal reflux disease) Atrial fibrillation with rapid ventricular response Essential hypertension Mitral regurgitation MVP (mitral valve prolapse) Hyperlipidemia Pulmonary HTN Surgical History Status post knee replacement History of D&C Esophageal dilatation S/P hernia repair S/P cataract extraction Family History Father Cancer PROSTATE Mother Cancer Congestive heart failure (CHF) Social History Smoking and tobacco/nicotine status: never used tobacco/nicotine Second hand smoke exposure: No Alcohol intake: never Substance/Drug Use: never Household members: spouse Marital status: Data Anesthesia Cardiac Studies: Echocardiogram 06/10/24 Echocardiogram Ultrasound 09/09/20 Holter Monitor 01/17/20
--- NOTE | 2025-03-20 09:59 | W.PM.OPSUD ---
Surgery/Procedure H&P Update DATE OF PROCEDURE: March 20, 2025 DATE H&P PERFORMED: 02/26/25 H&P UPDATE INFORMATION: I have reviewed H&P completed within last 30 days, I have examined patient prior to procedure and No changes to prior documentation PREOP DIAGNOSIS: Mitral valve regurgitation, worsening of shortness of breath PRIMARY INDICATION FOR PROCEDURE: Mitral valve regurgitation Mitral valve disorder PLANNED PROCEDURE: Operation Date: 03/20/25 08:30 Proposed Procedures p FLORENTINO - Echocardiogram Transesophageal(Not Applicable) - Yaima Licea MD PATIENT REASSESSED PRIOR TO SEDATION, WITH NO CHANGE NOTED: Yes PHYSICAL EXAM: alert, oriented x 3, clear to auscultation bilaterally and regular rate & rhythm OTHER PERTINENT EXAM FINDINGS: Patient has been explained all risk-benefit and alternative for the procedure. Please note that consent for sedation is as per anesthesia for FLORENTINO patient has been explained risk-benefit and alternative for the procedure patient understand risk for abrasion perforation of esophagus overall facial trauma aspiration. Patient agrees to it and would like to proceed with it.
[2025-03-20 10:31] VITALS: BP 106/73; PULSE 82; RESP 17; TEMP 36.1; O2SAT 93
--- NOTE | 2025-03-20 10:36 | ANE.PACU2 ---
Inpatient post-anesthesia follow up: Airway intact: Yes Vital signs: Temperature 97.7 F Pulse Rate 64 Respiratory Rate 18 Blood Pressure 133/83 Pulse Oximetry 97 Oxygen Delivery Me thod Room Air Oxygen Flow Rate Fraction of Inspir ed Oxygen Hydration adequate: Yes Nausea and vomiting: No Pain level: 1 Mental status: Baseline
[2025-03-20 10:43] VITALS: BP 105/69; PULSE 81; RESP 16; O2SAT 92
[2025-03-20 11:15] VITALS: BP 125/59; PULSE 61; RESP 16; O2SAT 96
== END 2025-03-20 11:40 | disposition home or self-care (01) ==
PROVIDERS: PCP Family Medicine; Visit Provider Internal Medicine Cardiovascular Disease
PROC: (CPT 93312; principal; 2025-03-20 08:30)
DX: I34.0 Nonrheumatic mitral (valve) insufficiency (principal); I34.81 Nonrheumatic mitral (valve) annulus calcification; I70.0 Atherosclerosis of aorta; I25.10 Atherosclerotic heart disease of native coronary artery without angina pectoris; I11.0 Hypertensive heart disease with heart failure; I50.9 Heart failure, unspecified; R01.1 Cardiac murmur, unspecified; E78.5 Hyperlipidemia, unspecified; Z79.82 Long term (current) use of aspirin; I48.91 Unspecified atrial fibrillation
CPT/HCPCS: 93312; 93320; 93325; J2704; J7030; J9999

== ENCOUNTER → 2025-04-08 08:26 | Outpatient (BNVA) | payer MEDICARE, OTHER, SELFPAY | PROVIDERS: PCP Family Medicine; Visit Provider Physician Assistant | DX: M17.12 Unilateral primary osteoarthritis, left knee (principal); M94.262 Chondromalacia, left knee | CPT/HCPCS: 20610; 99213; J7318 ==

== ENCOUNTER → 2025-04-29 10:36 | Outpatient (BNVA) | payer MEDICARE, OTHER, SELFPAY | PROVIDERS: PCP Family Medicine; Visit Provider Physician Assistant | DX: M75.42 Impingement syndrome of left shoulder (principal) | CPT/HCPCS: 20610; 73030; 99213; J3301; J9999 ==